=== PATIENT | male | born 1955 | race Caucasian/White ===

== ENCOUNTER 2022-12-02 13:12 | Inpatient (IN) | payer MEDICARE, MEDICAID, SELFPAY ==
[2022-12-02 13:58] VITALS: BP 110/58; PULSE 81; RESP 16; TEMP 36.4; O2SAT 100
[2022-12-02 13:59] VITALS: BMI 21.4
--- NOTE | 2022-12-02 16:48 | PC.ADMIT ---
Patient is 67 year old male admitted from [facility] ED from [facility] following engaging in self harm. Patient presents with numerous superficial lacerations on forearms bilaterally. These were inflicted with a razor blade which was then flushed down the toilet. Patient reports he was feeling depressed and frustrated d/t wanting to leave facitlity and get his own apartment. He stated through public health epidemiologist (Leatha Perales) he did not intend to commit suicide. Patient presents as alert and oriented x4. CV was obtained. Dressed in hospital attire. Well groomed. Making good eye contact and speaking primarily turkish. Patient has guardian in place as indicated in medical record. Refused to sign consents/treatment plan/belongings list stating his desire to see social media intern. Patient ambulatory with steady gait. PMH includes HtN, HYPERCHOLESTEREMIA, LOW BACK PAIN, CAD, HX OF CA, DRY EYES, 2 OPEN HEART SURGERIES.
[2022-12-02 18:00] VITALS: BP 129/69; PULSE 82; RESP 18; TEMP 36.1; O2SAT 98
[2022-12-02] MEDS: Acetaminophen 325 MG TABLET 650 MG PO (20:10)
[2022-12-02] MEDS: traZODone HCL 50 MG TABLET PO (20:12)
[2022-12-02] MEDS: hydrOXYzine HCL 25 MG TABLET PO (20:12)
[2022-12-03 07:30] VITALS: BP 134/81; PULSE 79; RESP 16; TEMP 35.9; O2SAT 96
[2022-12-03 08:15] LABS: Estimated Average Glucose 114 mg/dL; Hemoglobin A1c % 5.6 %
[2022-12-03 08:53] LABS: Alanine Aminotransferase 26 U/L (0-40); Albumin Level 4.3 g/dL (3.5-5.0); Alkaline Phosphatase 64 U/L (39-117); Aspartate Amino Transferase 25 U/L (5-37); Bilirubin Total 1.7 mg/dL (0.0-1.0); Blood Urea Nitrogen 20 mg/dL (9-16); Calcium 9.5 mg/dL (8.4-10.2); Cholesterol 155 mg/dL; Creatinine Clr Calc Pharmacy 56.3; Estimated Glomerular Filt Rate > 60; Glucose Fasting 92 mg/dL (60-99); HDL Cholesterol 45 mg/dL; LDL Cholesterol Calculated 87 mg/dl; Total Protein 7.2 g/dL (6.5-8.0); Triglycerides 119 mg/dL
[2022-12-03 09:18] LABS: Anion Gap 19 (12-20); Carbon Dioxide 23 mmol/L (22-29); Chloride 103 mmol/L (96-108); Folate 11.7 ng/mL (> or = 4.0); Potassium 4.4 mmol/L (3.3-5.1); Sodium 141 mmol/L (135-145); Thyroid Stimulating Hormone 1.57 uIU/mL (0.32-4.0); Vitamin B12 652 pg/mL (200-900)
--- NOTE | 2022-12-03 10:00 | HO.PSYADMNOT ---
HPI Date of Service: 12/02/22 Chief Complaint: Aggression Sources of Information: patient interviewed, chart reviewed and crisis/core team assessment reviewed HPI Subjective Notes: Dominguez Warning (given and shows understanding) and Conditional Voluntary Narrative: Mr. Kowalski is a 67 year-old male with Neurocognitive Disorder and MDD. Per records, pt was transported from [facility] after pt cut both forearms in an attempt to end his life. Per record, pt reported he didn't like the nursing facility as he stated I don't like the rules there, they treat me like a child. In the ED- his utox was negative. 11/30/22 labs cbc unremarkable, CMP wnl. On the unit, pt presents as pleasant. He reports he cut his forearms because he wants to get out of the nursing facility. Pt states he was sent last June to [facility] after he was discharged from hospital in [facility]. He reports he was told he gets lost and is confused, which pt states he disagrees. He states he does not need a guardian and he wants assistance with getting new debit card and finding a studio. He denies SI/HI. He reports only reason for self harm was with intent to leave that facility but not to end his life. He denies VH/AH, does not appear internally preoccupied. No delusions. Pt reports he has been on medication for depression, prozac, and finds it helpful. He reports he has sisters in [place] and that prior to coming to this state he was living in [place]. He reports he lost his apartment, for unclear reasons and he was sleeping/living on the streets. He reports at that time eating food from trash cans. He reports he tried to get assistance from social workers in [place] but states they didn't help him with getting a new debit/credit card to afford paying for an apartment. Past Psychiatric History: Inpatient: in the past but unclear location and years. OP: none Past trial: prozac Medical Evaluation Reviewed: Yes Diagnostics Vital Signs (24Hr): Vital Signs - 24 hr 12/02/22 13:58 12/02/22 18:00 12/03/22 07:30 Temperature 97.6 F 97 F 96.7 F L Pulse Rate 81 82 79 Respiratory Rate 16 18 16 Blood Pressure 110/58 L 129/69 134/81 Pulse Oximetry 100 98 96 Oxygen Delivery Method Room Air Room Air Room Air BMI result Body Mass Index 21.4 Labs 12/03/22 07:50 Labs: Laboratory Results - last 48 hr 12/03/22 12/03/22 12/03/22 07:50 07:50 11:05 Sodium 141 Potassium 4.4 Chloride 103 Carbon Dioxide 23 Anion Gap 19 BUN 20 H Creatinine 1.04 Estim Creat Clear Calc 56.3 Estimated GFR > 60 Fasting Glucose 92 Estimat Average Glucose 114 Hemoglobin A1c % 5.6 Calcium 9.5 Total Bilirubin 1.7 H AST 25 ALT 26 Alkaline Phosphatase 64 Total Protein 7.2 Albumin 4.3 Triglycerides 119 Cholesterol 155 LDL Cholesterol, Calc 87 HDL Cholesterol 45 Vitamin B12 652 Folate 11.7 TSH 1.57 COVID-19 (LEYDA) Negative COVID-19 Clin Com See Note Meds/Allergies Meds Home Medications Medication Instructions Recorded Confirmed Type acetaminophen 500 mg tablet 1,000 mg PO BID PRN Headache 12/02/22 12/02/22 History apixaban 5 mg tablet 5 mg PO BID 12/02/22 12/02/22 History atorvastatin 40 mg tablet 40 mg PO BEDTIME 12/02/22 12/02/22 History carboxymethylcellulose sodium 1 drp ophthalmic (eye) BID PRN Dry 12/02/22 12/02/22 History Eyes clopidogrel 75 mg tablet 75 mg PO DAILY PRN Chest Pain 12/02/22 12/02/22 History otzhdif-srhmdsmqhc-PNW-caffeine 30 1 cap PO Q4H PRN Headache 12/02/22 12/02/22 History mg-50 mg-325 mg-40 mg capsule diclofenac sodium 1 % topical gel PRN Back Pain 12/02/22 12/02/22 History (Arthritis Pain (diclofenac)) fluoxetine 40 mg capsule 40 mg PO DAILY 12/02/22 12/02/22 History lidocaine 5 % topical patch 1 patch topical DAILY 12/02/22 12/02/22 History (Lidoderm) lisinopril 5 mg tablet 5 mg PO DAILY 12/02/22 12/02/22 History melatonin 3 mg capsule 3 mg PO BEDTIME PRN Back Pain 12/02/22 12/02/22 History metoprolol succinate 25 mg 25 mg PO 1XD 12/02/22 12/02/22 History tablet,extended release 24 hr trazodone 50 mg tablet 50 mg PO BEDTIME 12/02/22 12/02/22 History Allergies Allergies Allergy/AdvReac Type Severity Reaction Status Date / Time No Known Allergies Allergy Verified 12/02/22 13:43 Mental Status Exam Mental Status Exam Narrative: Appearance: wearing hospital gown, good hygiene, in NAD Behavior: cooperative Psychomotor: no agitation or retardation noted Speech: clear, normal rate/rhythm, volume, spontaneous TP: tangential at times, but no loose associations TC:no signs of psychosis/delusions, wanting to get apartment and help from director social welfare. Mood: good Affect: bright, non labile, congruent SI: adamantly denies HI: denies VH/AH: none Delusions: none Memory/cog: alert, oriented to place, month, date. not formally tested suspect executive function impairment. pending MOCA. Assessment & Plan Assessment & Plan (1) MDD (major depressive disorder), recurrent episode, moderate: Status: Acute Code(s): F33.1 - Major depressive disorder, recurrent, moderate (2) Major neurocognitive disorder: Status: Acute Code(s): F03.90 - Unspecified dementia, unspecified severity, without behavioral disturbance, psychotic disturbance, mood disturbance, and anxiety Plan Mr. Kowalski is a 67 year-old male with hx of MDD, neurocognitive disorder who was transfered from [facility] to hospital after he cut both forearms superfically with razor reporting this was a suicide attempt. On the unit, pt reports he did not intent to end his life and that he was trying to get out of nursing facility. He adamantly denies SI/HI. He asks for help from to get new debit card and help him find him an apartment in this area. Pt appears with no insight into cognitive impairments and states he does not need a guardian. Copy of guardianship on chart- Angelo Zhu ([phone]) is guardian with power to sign pt into nursing facility. PLAN 1. admit to S1, cv, 15 minutes checks for safety 2. continue prozac for depression and trazodone for sleep. 3. Obtain collateral information 4. Aftercare planning. Patient educated on: diagnosis Reason for continued inpatient stay Substantial Risk for: harm to self Statement Statement: I have reviewed the history and physical and performed a pertinent examination on my patient. No changes have occurred unless specified. If the History and Physical was not performed prior to admission, the Hospitalist's service will be consulted for completing the admission physical. Time Spent With Patient Time: Total time managing care of this patient today ____ minutes.
[2022-12-03] MEDS: hydrOXYzine HCL 25 MG TABLET PO (10:19)
[2022-12-03] MEDS: Acetaminophen 325 MG TABLET 650 MG PO (10:19)
[2022-12-03 12:04] LABS: COVID-19 Test Negative (Negative); IDNOW Serial# BCCEAD1C
[2022-12-03] MEDS: FLUoxetine HCl 20 MG CAPSULE 40 MG PO (13:38)
[2022-12-03] MEDS: Apixaban 5 MG TABLET PO ×2 (13:38→19:37)
[2022-12-03] MEDS: Lidocaine 4 % Patch ADH..PATCH 1 PATCH TRANSDERMA (13:38)
[2022-12-03] MEDS: lisinopriL 5 MG TABLET PO (15:14)
[2022-12-03 18:00] VITALS: BP 119/67; PULSE 65; RESP 16; TEMP 36.6; O2SAT 96
[2022-12-03] MEDS: Atorvastatin Calcium 40 MG TABLET PO (19:37)
[2022-12-03] MEDS: traZODone HCL 50 MG TABLET PO (19:37)
[2022-12-04] MEDS: OLANZapine 10 MG VIAL IM ×2 (03:01→22:51)
[2022-12-04] MEDS: LORazepam 2 MG/ML VIAL 1 MG IM ×2 (03:03→22:52)
--- NOTE | 2022-12-04 03:37 | PC.NURSE ---
PT expressing SI statements and notified. PT placed on 1:1 at 2218 due to making SI statements, talking in Arabic to MHA on floor about wanting to hurt himself. PT was agitated that he had a roommate and staff needed to enter room to take care of roommate. While on 1:1 at 0214am PT went into BR which he shared with roommate and cut self superficially 2x on R arm and 1 time on L arm with toothpaste tube. MD Packer and nurse first line supervisor Gaby notified. Security called, PT refusing po meds so 10mg Zyprexa in R deltoid at 0245 and 1 mg ativan L deltoid given IM at 0250 with security present, no issues. VS taken after 15 minutes at 0300, BP 126/81, P 114, R 18, O2 98% at 0250 MD Keith notified to come see PT within 1 hour. PT refusing VS every 15 minutes after that. PT room changed to single room, all objects removed that could be used for self harm, room sweep done. PT remains on 1:1 and is resting at this time. Respirations are wnl. Incident report and restraint paperwork done.
--- NOTE | 2022-12-04 12:24 | P.PNPSI_ITS ---
Subjective Subjective Date of Service: 12/04/22 Reason For Visit: Aggression Subjective Notes: Conditional Voluntary Interim History: The nursing staff reported that last night the patient needed to be chemically restrained and he was on one-to-one, he tried to cut his forearm with a toothpaste package and he stated that he will kill herself regardless of the rahat sures that we take. On interview I tried to ask what happened but he refursed to elaborate, he sta low that he was OK. Mental Status Exam Mental Status Exam Patient Orientation: Person, Place and Situation Level of Consciousness: Awake and Inappropriate Patient Behavior: Guarded and Suspicious Mood Description: Withdrawn Affect Description: Constricted Patient Cognition Impaired: Yes Ability to Follow Directions: Fair Speech Pattern: Monotone Hallucinations: None Delusions: Paranoid Ideation Thought Process: Distracted and Slowed Thinking Thought Content: positive for [place] Judgement: Poor Diagnostics Vital Signs (24Hr): Vital Signs - 24 hr 12/03/22 18:00 Temperature 97.9 F Pulse Rate 65 Respiratory Rate 16 Blood Pressure 119/67 Pulse Oximetry 96 Oxygen Delivery Method Room Air BMI result Body Mass Index 21.4 Labs 12/03/22 07:50 Labs: Laboratory Results - last 48 hr 12/03/22 12/03/22 12/03/22 07:50 07:50 11:05 Sodium 141 Potassium 4.4 Chloride 103 Carbon Dioxide 23 Anion Gap 19 BUN 20 H Creatinine 1.04 Estim Creat Clear Calc 56.3 Estimated GFR > 60 Fasting Glucose 92 Estimat Average Glucose 114 Hemoglobin A1c % 5.6 Calcium 9.5 Total Bilirubin 1.7 H AST 25 ALT 26 Alkaline Phosphatase 64 Total Protein 7.2 Albumin 4.3 Triglycerides 119 Cholesterol 155 LDL Cholesterol, Calc 87 HDL Cholesterol 45 Vitamin B12 652 Folate 11.7 TSH 1.57 COVID-19 (LEYDA) Negative COVID-19 Clin Com See Note Medications Medications Current Medications Acetaminophen (Acetaminophen 325 Mg Tablet) 650 mg PO Q6H PRN PRN Reason: Headache/Pain Mild Scale (1-3) Last Admin: 12/03/22 10:19 Dose: 650 mg Al Hydroxide/Mg Hydroxide (Magnesium Hydrox/Alum Hydrox 30 Ml Oral.Susp) 30 ml PO Q6H PRN PRN Reason: Heartburn/Nausea Apixaban (Apixaban 5 Mg Tablet) 5 mg PO BID AKSHAT Last Admin: 12/04/22 11:50 Dose: Not Given Artificial Tears (Artificial Tears 15 Ml Drops) 1 drop EYE-BOTH BID PRN PRN Reason: Dry Eyes Atorvastatin Calcium (Atorvastatin Calcium 40 Mg Tablet) 40 mg PO BEDTIME [facility] Last Admin: 12/03/22 19:37 Dose: 40 mg Clopidogrel Bisulfate (Clopidogrel Bisulfate 75 Mg Tablet) 75 mg PO DAILY PRN PRN Reason: Chest Pain Fluoxetine HCl (Fluoxetine Hcl 20 Mg Capsule) 40 mg PO DAILY [facility] Last Admin: 12/04/22 11:51 Dose: Not Given Hydroxyzine HCl (Hydroxyzine Hcl 25 Mg Tablet) 25 mg PO Q6H PRN PRN Reason: Anxiety Last Admin: 12/03/22 10:19 Dose: 25 mg Lidocaine (Lidocaine 4 % Patch Adh..Patch) 1 patch TRANSDERMA DAILY [facility] Last Admin: 12/04/22 11:51 Dose: Not Given Lisinopril (Lisinopril 5 Mg Tablet) 5 mg PO DAILY [facility]; Protocol Last Admin: 12/04/22 11:51 Dose: Not Given Magnesium Hydroxide (Milk Of Magnesia 30 Ml Oral.Susp) 30 ml PO DAILY PRN PRN Reason: Constipation Melatonin (Melatonin 3 Mg Tablet) 3 mg PO BEDTIME PRN PRN Reason: Back Pain Metoprolol Succinate (Metoprolol Succinate Er 25 Mg Tab.Er.24h) 25 mg PO DAILY [facility]; Protocol Last Admin: 12/04/22 11:51 Dose: Not Given Non-Formulary Medication (Ozyglcv-Bakbogeltc-Lbk-Caff) 1 cap PO Q4H PRN PRN Reason: Headache Olanzapine (Olanzapine 2.5 Mg Tablet) 2.5 mg PO BID PRN PRN Reason: agitation, activation of SIBS Trazodone HCl (Trazodone Hcl 50 Mg Tablet) 50 mg PO BEDTIME PRN PRN Reason: Insomnia Last Admin: 12/02/22 20:12 Dose: 50 mg Trazodone HCl (Trazodone Hcl 50 Mg Tablet) 50 mg PO BEDTIME [facility] Last Admin: 12/03/22 19:37 Dose: 50 mg Allergies Allergies Allergy/AdvReac Type Severity Reaction Status Date / Time No Known Allergies Allergy Verified 12/02/22 13:43 Assessment & Plan Assessment & Plan (1) MDD (major depressive disorder), recurrent episode, moderate: Status: Acute Code(s): F33.1 - Major depressive disorder, recurrent, moderate (2) Major neurocognitive disorder: Status: Acute Code(s): F03.90 - Unspecified dementia, unspecified severity, without behavioral disturbance, psychotic disturbance, mood disturbance, and anxiety Plan Mr. Kowalski is a 67 year-old male with hx of MDD, neurocognitive disorder who was transfered from [facility] to hospital after he cut both forearms superfically with razor reporting this was a suicide attempt. On the unit, pt reports he did not intent to end his life and that he was trying to get out of nursing facility. He adamantly denies SI/HI. He asks for help from SW to get new debit card and help him find him an apartment in this area. Pt appears with no insight into cognitive impairments and states he does not need a guardian. Copy of guardianship on chart- Angelo Wisdomer ([phone]) is guardian with power to sign pt into nursing facility. PLAN 1. admit to S1, cv, 15 minutes checks for safety 2. continue prozac for depression and trazodone for sleep. 3. Obtain collateral information 4. Aftercare planning. 5. Continue one-to-one for safety Reason for contiued inpatient stay Substantial Risk for: inability to function, rapid decompensation and med/psych decompensation Time Spent With Patient Time: Total time managing care of this patient today __20__ minutes.
[2022-12-04] MEDS: hydrOXYzine HCL 25 MG TABLET PO (19:38)
[2022-12-04] MEDS: Atorvastatin Calcium 40 MG TABLET PO (19:38)
[2022-12-04] MEDS: Apixaban 5 MG TABLET PO (19:38)
[2022-12-04] MEDS: traZODone HCL 50 MG TABLET PO (19:38)
--- NOTE | 2022-12-04 22:35 | PM.EVENT ---
Event Note Date of Service: 12/04/22 Event Note: pt agitated, throwing things, spitting, threatening staff, unable to be redirected and will not take prn. Discussed with nursing and previously pt treated with IM zyprexa 10mg /ativan 1mg, so reordered the same Time Spent With Patient Time: Total time managing care of this patient today ____ minutes.
--- NOTE | 2022-12-05 04:06 | PC.NURSE ---
12/04/2022 7 PM Patient took shower and became angry when he was not allowed to keep a comb due to self harm. Patient disrupting floor with yelling swears at other patients and staff. Security called to help calm patient and he agreed to take his hs meds. Patient has a one to one staff and patient continued to yell and swear in [facility], slamming bathroom door, throwing liquid, spitting on floors. Patient offered PRN Trazadone and zyprexa and he threw the pills across the room states give me a shot I am not taking your pills . Patient continued to be disruptive and aggressive threatening to slice our throats. Dr. Bowman called and orders given. 2250 Patient given Zyprexa 10 mg and Ativan 1 mg IM with good effect. Patient refuses vital signs post IM meds given. Hospitalist in to see patient. Patient has constant one to one staff. Patient sleeping at this time without incident.
[2022-12-05] MEDS: OLANZapine 10 MG VIAL IM (12:26)
[2022-12-05] MEDS: LORazepam 2 MG/ML VIAL 1 MG IM (12:38)
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
[2022-12-05 18:00] VITALS: BP 129/62; PULSE 88; RESP 18; TEMP 36.2; O2SAT 95
[2022-12-05] MEDS: Atorvastatin Calcium 40 MG TABLET PO (19:55)
[2022-12-05] MEDS: traZODone HCL 50 MG TABLET PO (19:55)
[2022-12-05] MEDS: Apixaban 5 MG TABLET PO (19:55)
[2022-12-05] MEDS: Melatonin 3 MG TABLET PO (19:56)
[2022-12-06 06:00] VITALS: BP 125/83; PULSE 119; RESP 18; TEMP 36.4; O2SAT 95
--- NOTE | 2022-12-06 06:48 | PC.NURSE ---
Patient is awake at 0600 enjoying conversation with his ethiopian speaking 1:1 states I am not usually mean to people, just sometimes I get angry . Patient shook my hand told me my name is ethiopian and is cooperative.
[2022-12-06] MEDS: Lidocaine 4 % Patch ADH..PATCH 1 PATCH TRANSDERMA (08:18)
[2022-12-06] MEDS: Metoprolol Succinate ER 25 MG TAB.ER.24H PO (08:19)
[2022-12-06] MEDS: lisinopriL 5 MG TABLET PO (08:19)
[2022-12-06] MEDS: FLUoxetine HCl 20 MG CAPSULE 40 MG PO (08:19)
[2022-12-06] MEDS: Apixaban 5 MG TABLET PO ×2 (08:19→20:16)
[2022-12-06] MEDS: hydrOXYzine HCL 25 MG TABLET PO ×2 (10:29→20:16)
[2022-12-06] MEDS: Acetaminophen 325 MG TABLET 650 MG PO ×2 (11:49→20:20)
--- NOTE | 2022-12-06 12:23 | HO.PSYCHPN ---
Subjective Subjective Date of Service: 12/06/22 Reason For Visit: Aggression Interim History: pt much calmer today; cooperative; bright; expressing remorse for outbursts and aggression yesterday. appropriate with peers and staff. reports vistaril helped with anxiety Medication Compliance: Yes Side effects from medications: No Attending Groups: No Review of Systems Acute medical concerns: No Medical Review of Systems: unchanged Review of Systems Review of Systems no changes Mental Status Exam Mental Status Exam Narrative: Appearance: neatly dressed, good hygiene, in NAD Behavior:cooperative Psychomotor:calm Speech:appropriate, coherent,normal volume, spontaneous TP: tangential at times, but no loose associations TC: remorseful; cooperative Mood:euthymic Affect: labile, congruent SI: adamantly denies HI: denies VH/AH: none Delusions: none Memory/cog: alert, oriented to place, month, date. not formally tested suspect executive function impairment. pending MOCA. Patient Appearance: Appropriate Patient Orientation: Person, Place and Situation Level of Consciousness: Awake and Inappropriate Patient Behavior: Guarded, Suspicious, Aggressive, Verbal Threats, Swearing, Invasion - Personal Space, Uncooperative, Impulsive and Pacing Mood Description: Angry Affect Description: Labile Patient Cognition Impaired: Yes Ability to Follow Directions: Poor Speech Pattern: Coherent, Inappropriate and Includes Profanity Diagnostics Vital Signs (24Hr): Vital Signs - 24 hr 12/05/22 18:00 12/06/22 06:00 Temperature 97.1 F 97.5 F Pulse Rate 88 119 H Respiratory Rate 18 18 Blood Pressure 129/62 125/83 Pulse Oximetry 95 95 Oxygen Delivery Method Room Air Room Air BMI result Body Mass Index 21.4 Labs 12/03/22 07:50 Medications Medications Current Medications Acetaminophen (Acetaminophen 325 Mg Tablet) 650 mg PO Q6H PRN PRN Reason: Headache/Pain Mild Scale (1-3) Last Admin: 12/06/22 11:49 Dose: 650 mg Al Hydroxide/Mg Hydroxide (Magnesium Hydrox/Alum Hydrox 30 Ml Oral.Susp) 30 ml PO Q6H PRN PRN Reason: Heartburn/Nausea Apixaban (Apixaban 5 Mg Tablet) 5 mg PO BID [facility] Last Admin: 12/06/22 08:19 Dose: 5 mg Artificial Tears (Artificial Tears 15 Ml Drops) 1 drop EYE-BOTH BID PRN PRN Reason: Dry Eyes Atorvastatin Calcium (Atorvastatin Calcium 40 Mg Tablet) 40 mg PO BEDTIME [facility] Last Admin: 12/05/22 19:55 Dose: 40 mg Clopidogrel Bisulfate (Clopidogrel Bisulfate 75 Mg Tablet) 75 mg PO DAILY PRN PRN Reason: Chest Pain Fluoxetine HCl (Fluoxetine Hcl 20 Mg Capsule) 40 mg PO DAILY [facility] Last Admin: 12/06/22 08:19 Dose: 40 mg Hydroxyzine HCl (Hydroxyzine Hcl 25 Mg Tablet) 25 mg PO Q6H PRN PRN Reason: Anxiety Last Admin: 12/06/22 10:29 Dose: 25 mg Lidocaine (Lidocaine 4 % Patch Adh..Patch) 1 patch TRANSDERMA DAILY [facility] Last Admin: 12/06/22 08:18 Dose: 1 patch Lisinopril (Lisinopril 5 Mg Tablet) 5 mg PO DAILY [facility]; Protocol Last Admin: 12/06/22 08:19 Dose: 5 mg Magnesium Hydroxide (Milk Of Magnesia 30 Ml Oral.Susp) 30 ml PO DAILY PRN PRN Reason: Constipation Melatonin (Melatonin 3 Mg Tablet) 3 mg PO BEDTIME PRN PRN Reason: Back Pain Last Admin: 12/05/22 19:56 Dose: 3 mg Metoprolol Succinate (Metoprolol Succinate Er 25 Mg Tab.Er.24h) 25 mg PO DAILY [facility]; Protocol Last Admin: 12/06/22 08:19 Dose: 25 mg Non-Formulary Medication (Stdxhxe-Sjtkgylrrk-Rma-Caff) 1 cap PO Q4H PRN PRN Reason: Headache Olanzapine (Olanzapine 2.5 Mg Tablet) 2.5 mg PO BID PRN PRN Reason: agitation, activation of SIBS Trazodone HCl (Trazodone Hcl 50 Mg Tablet) 50 mg PO BEDTIME PRN PRN Reason: Insomnia Last Admin: 12/02/22 20:12 Dose: 50 mg Trazodone HCl (Trazodone Hcl 50 Mg Tablet) 50 mg PO BEDTIME [facility] Last Admin: 12/05/22 19:55 Dose: 50 mg Allergies Allergies Allergy/AdvReac Type Severity Reaction Status Date / Time No Known Allergies Allergy Verified 12/02/22 13:43 Assessment & Plan Assessment & Plan (1) MDD (major depressive disorder), recurrent episode, moderate: Status: Acute Code(s): F33.1 - Major depressive disorder, recurrent, moderate (2) Major neurocognitive disorder: Status: Acute Code(s): F03.90 - Unspecified dementia, unspecified severity, without behavioral disturbance, psychotic disturbance, mood disturbance, and anxiety Plan Mr. Kowalski is a 67 year-old male with hx of MDD, neurocognitive disorder who was transfered from [facility] to hospital after he cut both forearms superfically with razor reporting this was a suicide attempt. On the unit, pt reports he did not intent to end his life and that he was trying to get out of nursing facility. He adamantly denies SI/HI. He asks for help from SW to get new debit card and help him find him an apartment in this area. Pt appears with no insight into cognitive impairments and states he does not need a guardian. Copy of guardianship on chart- Angelo Zhu ([phone]) is guardian with power to sign pt into nursing facility. PLAN CV continue prozac for depression and trazodone for sleep. encourage vistaril for anxiety Obtain collateral information Aftercare planning. Continue one-to-one for safety Patient educated on: medication risk/benefits and therapeutic strategies Informed Consent: further education needed Reason for contiued inpatient stay Substantial Risk for: harm to self, harm to others, rapid decompensation and med/psych decompensation Time Spent With Patient Time: Total time managing care of this patient today ____ minutes.
[2022-12-06 18:00] VITALS: BP 132/92; PULSE 80; RESP 16; TEMP 36.1; O2SAT 95
[2022-12-06] MEDS: traZODone HCL 50 MG TABLET PO (20:15)
[2022-12-06] MEDS: Atorvastatin Calcium 40 MG TABLET PO (20:16)
[2022-12-06] MEDS: Melatonin 3 MG TABLET PO (20:20)
[2022-12-07] MEDS: Acetaminophen 325 MG TABLET 650 MG PO (06:35)
[2022-12-07] MEDS: lisinopriL 5 MG TABLET PO (09:27)
[2022-12-07] MEDS: Apixaban 5 MG TABLET PO (09:27)
[2022-12-07] MEDS: Lidocaine 4 % Patch ADH..PATCH 1 PATCH TRANSDERMA (09:28)
[2022-12-07] MEDS: Metoprolol Succinate ER 25 MG TAB.ER.24H PO (09:28)
[2022-12-07 10:34] VITALS: BP 150/75; PULSE 76; RESP 18; O2SAT 96
--- NOTE | 2022-12-07 13:07 | HO.PSYCHPN ---
Subjective Subjective Date of Service: 12/07/22 Reason For Visit: Aggression Subjective Notes: Conditional Voluntary Interim History: The nursing staff reported the patient has been very rude with staff and today in the morning he threw away his oatmeal on the floor. On Wednesday he threw out all hot soup to a peer that was very angry and he needed to be medicated IM. The occupational therapist reported that here [place] test was 3.4 and they could not do a [place] test. On interview the patient reported that he wanted to kill someone he was just angry, unable to follow the interview. We discussed with the team and we agreed to start Depakote to control mood lability. Also, since the patient had been chemically restrain will start with an antipsychotic. Mental Status Exam Mental Status Exam Patient Appearance: Appropriate Patient Orientation: Person and Situation Level of Consciousness: Awake and Appropriate Patient Behavior: Guarded, Passive and Suspicious Mood Description: Withdrawn and Angry Affect Description: Labile Patient Cognition Impaired: Yes Ability to Follow Directions: Good Speech Pattern: Clear Hallucinations: None Delusions: Not Present Thought Process: Distracted and Evasive Thought Content: positive for [place] and positive for [place] Oriented Judgement: Fair Diagnostics Vital Signs (24Hr): Vital Signs - 24 hr 12/06/22 18:00 12/07/22 10:34 Temperature 96.9 F Pulse Rate 80 76 Respiratory Rate 16 18 Blood Pressure 132/92 H 150/75 H Pulse Oximetry 95 96 Oxygen Delivery Method Room Air Room Air BMI result Body Mass Index 21.4 Labs 12/03/22 07:50 Medications Medications Current Medications Acetaminophen (Acetaminophen 325 Mg Tablet) 650 mg PO Q6H PRN PRN Reason: Headache/Pain Mild Scale (1-3) Last Admin: 12/07/22 06:35 Dose: 650 mg Al Hydroxide/Mg Hydroxide (Magnesium Hydrox/Alum Hydrox 30 Ml Oral.Susp) 30 ml PO Q6H PRN PRN Reason: Heartburn/Nausea Apixaban (Apixaban 5 Mg Tablet) 5 mg PO BID [facility] Last Admin: 12/07/22 09:27 Dose: 5 mg Artificial Tears (Artificial Tears 15 Ml Drops) 1 drop EYE-BOTH BID PRN PRN Reason: Dry Eyes Atorvastatin Calcium (Atorvastatin Calcium 40 Mg Tablet) 40 mg PO BEDTIME [facility] Last Admin: 12/06/22 20:16 Dose: 40 mg Clopidogrel Bisulfate (Clopidogrel Bisulfate 75 Mg Tablet) 75 mg PO DAILY PRN PRN Reason: Chest Pain Divalproex Sodium (Divalproex Sodium 250 Mg Tablet.Dr) 250 mg PO TID [facility] Last Admin: 12/07/22 09:32 Dose: Not Given Fluoxetine HCl (Fluoxetine Hcl 20 Mg Capsule) 40 mg PO DAILY [facility] Last Admin: 12/07/22 09:32 Dose: Not Given Hydroxyzine HCl (Hydroxyzine Hcl 25 Mg Tablet) 25 mg PO Q6H PRN PRN Reason: Anxiety Last Admin: 12/06/22 20:16 Dose: 25 mg Lidocaine (Lidocaine 4 % Patch Adh..Patch) 1 patch TRANSDERMA DAILY [facility] Last Admin: 12/07/22 09:28 Dose: 1 patch Lisinopril (Lisinopril 5 Mg Tablet) 5 mg PO DAILY [facility]; Protocol Last Admin: 12/07/22 09:27 Dose: 5 mg Magnesium Hydroxide (Milk Of Magnesia 30 Ml Oral.Susp) 30 ml PO DAILY PRN PRN Reason: Constipation Melatonin (Melatonin 3 Mg Tablet) 3 mg PO BEDTIME PRN PRN Reason: Back Pain Last Admin: 12/06/22 20:20 Dose: 3 mg Metoprolol Succinate (Metoprolol Succinate Er 25 Mg Tab.Er.24h) 25 mg PO DAILY [facility]; Protocol Last Admin: 12/07/22 09:28 Dose: 25 mg Non-Formulary Medication (Pmbggtu-Xlzpwbycnn-Eno-Caff) 1 cap PO Q4H PRN PRN Reason: Headache Olanzapine (Olanzapine 2.5 Mg Tablet) 2.5 mg PO BID PRN PRN Reason: agitation, activation of SIBS Trazodone HCl (Trazodone Hcl 50 Mg Tablet) 50 mg PO BEDTIME PRN PRN Reason: Insomnia Last Admin: 12/02/22 20:12 Dose: 50 mg Trazodone HCl (Trazodone Hcl 50 Mg Tablet) 50 mg PO BEDTIME [facility] Last Admin: 12/06/22 20:15 Dose: 50 mg Allergies Allergies Allergy/AdvReac Type Severity Reaction Status Date / Time No Known Allergies Allergy Verified 12/02/22 13:43 Assessment & Plan Assessment & Plan (1) MDD (major depressive disorder), recurrent episode, moderate: Status: Acute Code(s): F33.1 - Major depressive disorder, recurrent, moderate (2) Major neurocognitive disorder: Status: Acute Code(s): F03.90 - Unspecified dementia, unspecified severity, without behavioral disturbance, psychotic disturbance, mood disturbance, and anxiety Plan Mr. Kowalski is a 67 year-old male with hx of MDD, neurocognitive disorder who was transfered from [facility] [place] [place] to hospital after he cut both forearms superfically with razor reporting this was a suicide attempt. On the unit, pt reports he did not intent to end his life and that he was trying to get out of nursing facility. He adamantly denies SI/HI. He asks for help from to get new debit card and help him find him an apartment in this area. Pt appears with no insight into cognitive impairments and states he does not need a guardian. Copy of guardianship on chart- Angelo Zhu ([phone]) is guardian with power to sign pt into nursing facility. PLAN CV continue prozac for depression and trazodone for sleep. encourage vistaril for anxiety Obtain collateral information Aftercare planning. Continue one-to-one for safety On December 07 start Depakote 250 mg p.o. t.i.d. to target mood lability. On December 07 start Zyprexa 2.5 p.o. b.i.d. Informed Consent: does not understand Reason for contiued inpatient stay Substantial Risk for: inability to function, rapid decompensation and med/psych decompensation Time Spent With Patient Time: Total time managing care of this patient today __20__ minutes.
[2022-12-07] MEDS: hydrOXYzine HCL 25 MG TABLET PO ×2 (17:33→21:16)
[2022-12-07] MEDS: OLANZapine 2.5 MG TABLET PO ×2 (17:33→21:17)
--- NOTE | 2022-12-07 17:39 | PC.NURSE ---
Pt walked out of room, multiple superficial scratches on bilat arms. Agitated and somewhat aggressive with ? verbal assaults in [place]. Interpreters telling this nurse pt speaking non sensical at times. Pt states will do something worse if I don't get out of here Security present and pt agreed to take medications po. returned to room with 1:1.
[2022-12-07 18:00] VITALS: BP 110/65; PULSE 60; RESP 16; TEMP 36.6; O2SAT 94
[2022-12-07] MEDS: Divalproex Sodium 250 MG TABLET.DR PO (21:16)
[2022-12-07] MEDS: Atorvastatin Calcium 40 MG TABLET PO (21:16)
[2022-12-07] MEDS: traZODone HCL 50 MG TABLET PO (21:18)
[2022-12-08] MEDS: Apixaban 5 MG TABLET PO ×3 (01:18→20:44)
[2022-12-08 07:30] VITALS: BP 131/61; PULSE 76; RESP 16; TEMP 36.8; O2SAT 94
[2022-12-08] MEDS: Lidocaine 4 % Patch ADH..PATCH 1 PATCH TRANSDERMA (09:45)
[2022-12-08] MEDS: OLANZapine 5 MG TABLET PO ×2 (09:47→20:44)
[2022-12-08] MEDS: FLUoxetine HCl 20 MG CAPSULE PO (09:47)
[2022-12-08] MEDS: lisinopriL 5 MG TABLET PO (09:47)
[2022-12-08] MEDS: Metoprolol Succinate ER 25 MG TAB.ER.24H PO (09:47)
[2022-12-08] MEDS: Divalproex Sodium 250 MG TABLET.DR PO ×3 (09:49→20:44)
[2022-12-08] MEDS: hydrOXYzine HCL 25 MG TABLET PO (09:51)
--- NOTE | 2022-12-08 11:40 | HO.PSYCHPN ---
Subjective Subjective Date of Service: 12/08/22 Reason For Visit: Aggression Subjective Notes: Conditional Voluntary Interim History: The nursing staff reported the patient remains on one-to-one due to safety. Last night he was very angry against female staff regarding that he cannot brush his teeth without supervision since he self harms. Security have to come and deescalated was closed for a chemical restraint. So far he had for chemical restraints. Yesterday we will lower the Prozac to 20 mg daily since he was very irritable, we started on Zyprexa 2.5 p.o. b.i.d. but he has not been over-sedated. Yesterday he used p.r.n. Zyprexa and Atarax twice. He had been poorly compliant with Depakote. On interview today he was very angry, verbalizing anger and homicidal ideation against a peer. We will increase his Zyprexa up to 5 mg p.o. b.i.d. since he is not over-sedated with 2.5 He has reqeusted more Vistaril Mental Status Exam Mental Status Exam Patient Appearance: Appropriate Patient Orientation: Person and Situation Level of Consciousness: Awake and Appropriate Patient Behavior: Passive and Belligerent Mood Description: Withdrawn Affect Description: Constricted Patient Cognition Impaired: Yes Ability to Follow Directions: Good Speech Pattern: Clear Hallucinations: None Delusions: Paranoid Ideation Thought Process: Distracted and Slowed Thinking Thought Content: positive for [place] and positive for Poverty of Content Judgement: Poor Diagnostics Vital Signs (24Hr): Vital Signs - 24 hr 12/07/22 18:00 12/08/22 07:30 Temperature 97.8 F 98.2 F Pulse Rate 60 76 Respiratory Rate 16 16 Blood Pressure 110/65 131/61 Pulse Oximetry 94 94 Oxygen Delivery Method Room Air Room Air BMI result Body Mass Index 21.4 Labs 12/03/22 07:50 Medications Medications Current Medications Acetaminophen (Acetaminophen 325 Mg Tablet) 650 mg PO Q6H PRN PRN Reason: Headache/Pain Mild Scale (1-3) Last Admin: 12/07/22 06:35 Dose: 650 mg Al Hydroxide/Mg Hydroxide (Magnesium Hydrox/Alum Hydrox 30 Ml Oral.Susp) 30 ml PO Q6H PRN PRN Reason: Heartburn/Nausea Apixaban (Apixaban 5 Mg Tablet) 5 mg PO BID [facility] Last Admin: 12/08/22 09:47 Dose: 5 mg Artificial Tears (Artificial Tears 15 Ml Drops) 1 drop EYE-BOTH BID PRN PRN Reason: Dry Eyes Atorvastatin Calcium (Atorvastatin Calcium 40 Mg Tablet) 40 mg PO BEDTIME [facility] Last Admin: 12/07/22 21:16 Dose: 40 mg Clopidogrel Bisulfate (Clopidogrel Bisulfate 75 Mg Tablet) 75 mg PO DAILY PRN PRN Reason: Chest Pain Divalproex Sodium (Divalproex Sodium 250 Mg Tablet.Dr) 250 mg PO TID [facility] Last Admin: 12/08/22 09:49 Dose: 250 mg Fluoxetine HCl (Fluoxetine Hcl 20 Mg Capsule) 20 mg PO DAILY [facility] Last Admin: 12/08/22 09:47 Dose: 20 mg Hydroxyzine HCl (Hydroxyzine Hcl 25 Mg Tablet) 25 mg PO Q6H PRN PRN Reason: Anxiety Last Admin: 12/08/22 09:51 Dose: 25 mg Lidocaine (Lidocaine 4 % Patch Adh..Patch) 1 patch TRANSDERMA DAILY [facility] Last Admin: 12/08/22 09:45 Dose: 1 patch Lisinopril (Lisinopril 5 Mg Tablet) 5 mg PO DAILY [facility]; Protocol Last Admin: 12/08/22 09:47 Dose: 5 mg Magnesium Hydroxide (Milk Of Magnesia 30 Ml Oral.Susp) 30 ml PO DAILY PRN PRN Reason: Constipation Melatonin (Melatonin 3 Mg Tablet) 3 mg PO BEDTIME PRN PRN Reason: Back Pain Last Admin: 12/06/22 20:20 Dose: 3 mg Metoprolol Succinate (Metoprolol Succinate Er 25 Mg Tab.Er.24h) 25 mg PO DAILY [facility]; Protocol Last Admin: 12/08/22 09:47 Dose: 25 mg Non-Formulary Medication (Nefcijc-Gphenqunif-Umj-Caff) 1 cap PO Q4H PRN PRN Reason: Headache Olanzapine (Olanzapine 2.5 Mg Tablet) 2.5 mg PO BID PRN PRN Reason: agitation, activation of SIBS Last Admin: 12/07/22 17:33 Dose: 2.5 mg Olanzapine (Olanzapine 5 Mg Tablet) 5 mg PO BID [facility] Last Admin: 12/08/22 09:47 Dose: 5 mg Trazodone HCl (Trazodone Hcl 50 Mg Tablet) 50 mg PO BEDTIME PRN PRN Reason: Insomnia Last Admin: 12/02/22 20:12 Dose: 50 mg Trazodone HCl (Trazodone Hcl 50 Mg Tablet) 50 mg PO BEDTIME [facility] Last Admin: 12/07/22 21:18 Dose: 50 mg Allergies Allergies Allergy/AdvReac Type Severity Reaction Status Date / Time No Known Allergies Allergy Verified 12/02/22 13:43 Assessment & Plan Assessment & Plan (1) MDD (major depressive disorder), recurrent episode, moderate: Status: Acute Code(s): F33.1 - Major depressive disorder, recurrent, moderate (2) Major neurocognitive disorder: Status: Acute Code(s): F03.90 - Unspecified dementia, unspecified severity, without behavioral disturbance, psychotic disturbance, mood disturbance, and anxiety Plan Mr. Kowalski is a 67 year-old male with hx of MDD, neurocognitive disorder who was transfered from [facility] to hospital after he cut both forearms superfically with razor reporting this was a suicide attempt. On the unit, pt reports he did not intent to end his life and that he was trying to get out of nursing facility. He adamantly denies SI/HI. He asks for help from to get new debit card and help him find him an apartment in this area. Pt appears with no insight into cognitive impairments and states he does not need a guardian. Copy of guardianship on chart- Angelo Zhu ([phone]) is guardian with power to sign pt into nursing facility. PLAN CV continue prozac for depression and trazodone for sleep. encourage vistaril for anxiety Obtain collateral information Aftercare planning. Continue one-to-one for safety On December 07 start Depakote 250 mg p.o. t.i.d. to target mood lability. On December 07 start Zyprexa 2.5 p.o. b.i.d. the next day we increased apraxia up to 5 mg p.o. b.i.d. since he was not over-sedated with 2.5 Reason for contiued inpatient stay Substantial Risk for: inability to function, rapid decompensation and med/psych decompensation Time Spent With Patient Time: Total time managing care of this patient today __20__ minutes.
[2022-12-08] MEDS: OLANZapine 2.5 MG TABLET PO (13:20)
[2022-12-08] MEDS: Acetaminophen 325 MG TABLET 650 MG PO ×2 (13:24→20:49)
[2022-12-08] MEDS: hydrOXYzine HCL 25 MG TABLET 50 MG PO (15:57)
[2022-12-08] MEDS: traZODone HCL 50 MG TABLET PO (20:44)
[2022-12-08] MEDS: Atorvastatin Calcium 40 MG TABLET PO (20:44)
[2022-12-09 07:30] VITALS: BP 134/60; PULSE 74; RESP 19; TEMP 36.4; O2SAT 98
[2022-12-09] MEDS: Lidocaine 4 % Patch ADH..PATCH 1 PATCH TRANSDERMA ×2 (08:10→11:58)
[2022-12-09] MEDS: FLUoxetine HCl 20 MG CAPSULE PO (08:13)
[2022-12-09] MEDS: Metoprolol Succinate ER 25 MG TAB.ER.24H PO (08:13)
[2022-12-09] MEDS: OLANZapine 5 MG TABLET PO ×2 (08:13→20:11)
[2022-12-09] MEDS: Apixaban 5 MG TABLET PO ×2 (08:13→20:17)
[2022-12-09] MEDS: lisinopriL 5 MG TABLET PO (08:13)
[2022-12-09] MEDS: Divalproex Sodium 250 MG TABLET.DR PO ×3 (08:13→20:17)
[2022-12-09] MEDS: Acetaminophen 325 MG TABLET 650 MG PO ×2 (08:16→20:21)
[2022-12-09] MEDS: hydrOXYzine HCL 25 MG TABLET 50 MG PO (11:24)
--- NOTE | 2022-12-09 12:43 | HO.PSYCHPN ---
Subjective Subjective Date of Service: 12/09/22 Reason For Visit: Aggression Subjective Notes: Conditional Voluntary Interim History: The nursing staff reported that today in the morning he was calm and pleasant, he was less hyperverbal and medication compliant. He slept well last night and there was no aggression. The social sciences lecturer reported that it several times to reach his guardian but and no response. On interview the patient was minimally interactive denies new symptoms. No over-sedation Mental Status Exam Mental Status Exam Patient Appearance: Appropriate Patient Orientation: Person and Situation Level of Consciousness: Awake and Appropriate Patient Behavior: Guarded and Passive Mood Description: Withdrawn Affect Description: Constricted and Labile Patient Cognition Impaired: Yes Ability to Follow Directions: Good Speech Pattern: Clear Hallucinations: None Delusions: Ideas of Reference Thought Process: Distracted and Slowed Thinking Thought Content: positive for [place] and positive for Poverty of Content Judgement: Poor Diagnostics Vital Signs (24Hr): Vital Signs - 24 hr 12/09/22 07:30 Temperature 97.6 F Pulse Rate 74 Respiratory Rate 19 Blood Pressure 134/60 Pulse Oximetry 98 Oxygen Delivery Method Room Air BMI result Body Mass Index 21.4 Labs 12/03/22 07:50 Medications Medications Current Medications Acetaminophen (Acetaminophen 325 Mg Tablet) 650 mg PO Q6H PRN PRN Reason: Headache/Pain Mild Scale (1-3) Last Admin: 12/09/22 08:16 Dose: 650 mg Al Hydroxide/Mg Hydroxide (Magnesium Hydrox/Alum Hydrox 30 Ml Oral.Susp) 30 ml PO Q6H PRN PRN Reason: Heartburn/Nausea Apixaban (Apixaban 5 Mg Tablet) 5 mg PO BID [facility] Last Admin: 12/09/22 08:13 Dose: 5 mg Artificial Tears (Artificial Tears 15 Ml Drops) 1 drop EYE-BOTH BID PRN PRN Reason: Dry Eyes Atorvastatin Calcium (Atorvastatin Calcium 40 Mg Tablet) 40 mg PO BEDTIME [facility] Last Admin: 12/08/22 20:44 Dose: 40 mg Clopidogrel Bisulfate (Clopidogrel Bisulfate 75 Mg Tablet) 75 mg PO DAILY PRN PRN Reason: Chest Pain Divalproex Sodium (Divalproex Sodium 250 Mg Tablet.) 250 mg PO TID [facility] Last Admin: 12/09/22 08:13 Dose: 250 mg Fluoxetine HCl (Fluoxetine Hcl 20 Mg Capsule) 20 mg PO DAILY [facility] Last Admin: 12/09/22 08:13 Dose: 20 mg Hydroxyzine HCl (Hydroxyzine Hcl 25 Mg Tablet) 50 mg PO Q4H PRN PRN Reason: anxiety/restlessness Last Admin: 12/09/22 11:24 Dose: 50 mg Lidocaine (Lidocaine 4 % Patch Adh..Patch) 1 patch TRANSDERMA DAILY [facility] Last Admin: 12/09/22 08:10 Dose: 1 patch Lisinopril (Lisinopril 5 Mg Tablet) 5 mg PO DAILY [facility]; Protocol Last Admin: 12/09/22 08:13 Dose: 5 mg Magnesium Hydroxide (Milk Of Magnesia 30 Ml Oral.Susp) 30 ml PO DAILY PRN PRN Reason: Constipation Melatonin (Melatonin 3 Mg Tablet) 3 mg PO BEDTIME PRN PRN Reason: Back Pain Last Admin: 12/06/22 20:20 Dose: 3 mg Metoprolol Succinate (Metoprolol Succinate Er 25 Mg Tab.Er.24h) 25 mg PO DAILY [facility]; Protocol Last Admin: 12/09/22 08:13 Dose: 25 mg Non-Formulary Medication (Culsibb-Uaqdwelxzb-Tzo-Caff) 1 cap PO Q4H PRN PRN Reason: Headache Olanzapine (Olanzapine 2.5 Mg Tablet) 2.5 mg PO BID PRN PRN Reason: agitation, activation of SIBS Last Admin: 12/08/22 13:20 Dose: 2.5 mg Olanzapine (Olanzapine 5 Mg Tablet) 5 mg PO BID [facility] Last Admin: 12/09/22 08:13 Dose: 5 mg Trazodone HCl (Trazodone Hcl 50 Mg Tablet) 50 mg PO BEDTIME PRN PRN Reason: Insomnia Last Admin: 12/02/22 20:12 Dose: 50 mg Trazodone HCl (Trazodone Hcl 50 Mg Tablet) 50 mg PO BEDTIME [facility] Last Admin: 12/08/22 20:44 Dose: 50 mg Allergies Allergies Allergy/AdvReac Type Severity Reaction Status Date / Time No Known Allergies Allergy Verified 12/02/22 13:43 Assessment & Plan Assessment & Plan (1) MDD (major depressive disorder), recurrent episode, moderate: Status: Acute Code(s): F33.1 - Major depressive disorder, recurrent, moderate (2) Major neurocognitive disorder: Status: Acute Code(s): F03.90 - Unspecified dementia, unspecified severity, without behavioral disturbance, psychotic disturbance, mood disturbance, and anxiety Plan Mr. Kowalski is a 67 year-old male with hx of MDD, neurocognitive disorder who was transfered from [facility] to hospital after he cut both forearms superfically with razor reporting this was a suicide attempt. On the unit, pt reports he did not intent to end his life and that he was trying to get out of nursing facility. He adamantly denies SI/HI. He asks for help from SW to get new debit card and help him find him an apartment in this area. Pt appears with no insight into cognitive impairments and states he does not need a guardian. Copy of guardianship on chart- Angelo Zhu ([phone]) is guardian with power to sign pt into nursing facility. PLAN CV continue prozac for depression and trazodone for sleep. encourage vistaril for anxiety Obtain collateral information Aftercare planning. Continue one-to-one for safety On December 07 start Depakote 250 mg p.o. t.i.d. to target mood lability. On December 07 start Zyprexa 2.5 p.o. b.i.d. the next day we increased apraxia up to 5 mg p.o. b.i.d. since he was not over-sedated with 2.5 Reason for contiued inpatient stay Substantial Risk for: inability to function, rapid decompensation and med/psych decompensation Time Spent With Patient Time: Total time managing care of this patient today __20__ minutes.
[2022-12-09 18:00] VITALS: BP 128/73; PULSE 67; RESP 18; TEMP 36.2; O2SAT 95
--- NOTE | 2022-12-09 18:09 | HO.PM.IMCN ---
History of Present Illness Data of Consult Service Date: 12/09/22 Requesting physician: Noe Zamora Primary Care Provider: Asim Suarez MD HPI Reason for consult: medical H&P 67 year old male with history ischemic cardiomyopathy, CAD, htn, hld, hx etoh abuse, hx cocaine abuse, atherosclerosis, chronic low back pain, aortic valve replacement, paroxysmal atrial flutter and unspecified dementia admitted to psychiatry with consult placed to medicine for medical H&P. Pt reports last etoh and cocaine use was 9 months ago. Reports he stopped at the advise of his automotive refinisher. Still smokes 2 cigarettes daily. Reports chronic pain in the low back and waking pain in the neck, hips, and shoulders. Takes tylenol and uses lidocaine patches with good effect. No complaints at this time. Review of Systems Review of Systems: Yes all other systems are reviewed and are negative [facility] Medical History (Updated 12/09/22 @ 18:20 by TD Gomes) CAD (coronary artery disease) Chronic anticoagulation Chronic low back pain History of alcohol abuse History of cocaine abuse HTN (hypertension) Ischemic cardiomyopathy Major neurocognitive disorder MDD (major depressive disorder), recurrent episode, moderate Paroxysmal atrial fibrillation Surgical History S/P aortic valve replacement Social History Household Members: Other Household Members Other:: Patient resides in prison Housing: Residential Do you presently have visiting nurse or other home services: No Unable to assess alcohol history related to: Unable to respond Patient Tobacco Use Status: Current everyday Tobacco user Tobacco use type: Cigarette Cigarettes Per Day: 2 Smoked in Last 30 Days: Yes e-Cigarette/Vaping Use: Never Used Patient Interested in Nicotine Replacement: No Patient Given Instructions on How to Stop Smoking: No Second Hand Smoke Exposure: No Use of substances other than those prescribed or required for medical reasons: No Currently Displaying Signs/Symptoms of Drug Intoxication Withdrawal: No Do you feel safe in your current relationship?: No Current Relationship Advance Directives: No Do you have thoughts of harming others: None Do you have a plan to hurt others: No Plan Recently lost weight without trying: Unsure Nutrition Risks: No Nutritional Risk Poor oral hygiene: Yes (dentition poor) service: No Meds Allergies Allergy/AdvReac Type Severity Reaction Status Date / Time No Known Allergies Allergy Verified 12/02/22 13:43 Active Medications: Current Medications Acetaminophen (Acetaminophen 325 Mg Tablet) 650 mg PO Q6H PRN PRN Reason: Headache/Pain Mild Scale (1-3) Last Admin: 12/09/22 08:16 Dose: 650 mg Al Hydroxide/Mg Hydroxide (Magnesium Hydrox/Alum Hydrox 30 Ml Oral.Susp) 30 ml PO Q6H PRN PRN Reason: Heartburn/Nausea Apixaban (Apixaban 5 Mg Tablet) 5 mg PO BID [facility] Last Admin: 12/09/22 08:13 Dose: 5 mg Artificial Tears (Artificial Tears 15 Ml Drops) 1 drop EYE-BOTH BID PRN PRN Reason: Dry Eyes Atorvastatin Calcium (Atorvastatin Calcium 40 Mg Tablet) 40 mg PO BEDTIME [facility] Last Admin: 12/08/22 20:44 Dose: 40 mg Clopidogrel Bisulfate (Clopidogrel Bisulfate 75 Mg Tablet) 75 mg PO DAILY PRN PRN Reason: Chest Pain Divalproex Sodium (Divalproex Sodium 250 Mg Tablet.Dr) 250 mg PO TID [facility] Last Admin: 12/09/22 15:34 Dose: 250 mg Fluoxetine HCl (Fluoxetine Hcl 20 Mg Capsule) 20 mg PO DAILY [facility] Last Admin: 12/09/22 08:13 Dose: 20 mg Hydroxyzine HCl (Hydroxyzine Hcl 25 Mg Tablet) 50 mg PO Q4H PRN PRN Reason: anxiety/restlessness Last Admin: 12/09/22 11:24 Dose: 50 mg Lidocaine (Lidocaine 4 % Patch Adh..Patch) 1 patch TRANSDERMA DAILY [facility] Last Admin: 12/09/22 08:10 Dose: 1 patch Lisinopril (Lisinopril 5 Mg Tablet) 5 mg PO DAILY [facility]; Protocol Last Admin: 12/09/22 08:13 Dose: 5 mg Magnesium Hydroxide (Milk Of Magnesia 30 Ml Oral.Susp) 30 ml PO DAILY PRN PRN Reason: Constipation Melatonin (Melatonin 3 Mg Tablet) 3 mg PO BEDTIME PRN PRN Reason: Back Pain Last Admin: 12/06/22 20:20 Dose: 3 mg Metoprolol Succinate (Metoprolol Succinate Er 25 Mg Tab.Er.24h) 25 mg PO DAILY [facility]; Protocol Last Admin: 12/09/22 08:13 Dose: 25 mg Non-Formulary Medication (Kmephyp-Voxtszgrdj-Tkh-Caff) 1 cap PO Q4H PRN PRN Reason: Headache Olanzapine (Olanzapine 2.5 Mg Tablet) 2.5 mg PO BID PRN PRN Reason: agitation, activation of SIBS Last Admin: 12/08/22 13:20 Dose: 2.5 mg Olanzapine (Olanzapine 5 Mg Tablet) 5 mg PO BID [facility] Last Admin: 12/09/22 08:13 Dose: 5 mg Trazodone HCl (Trazodone Hcl 50 Mg Tablet) 50 mg PO BEDTIME PRN PRN Reason: Insomnia Last Admin: 12/02/22 20:12 Dose: 50 mg Trazodone HCl (Trazodone Hcl 50 Mg Tablet) 50 mg PO BEDTIME [facility] Last Admin: 12/08/22 20:44 Dose: 50 mg Home Medications Medication Instructions Recorded Confirmed Last Taken Type acetaminophen 500 mg tablet 1,000 mg PO BID PRN Headache 12/02/22 12/02/22 Unknown History apixaban 5 mg tablet 5 mg PO BID 12/02/22 12/02/22 Unknown History atorvastatin 40 mg tablet 40 mg PO BEDTIME 12/02/22 12/02/22 Unknown History carboxymethylcellulose sodium 1 drp ophthalmic (eye) BID PRN Dry 12/02/22 12/02/22 Unknown History Eyes clopidogrel 75 mg tablet 75 mg PO DAILY PRN Chest Pain 12/02/22 12/02/22 Unknown History jmsbvsj-dtqdchrxfy-SGA-caffeine 30 1 cap PO Q4H PRN Headache 12/02/22 12/02/22 Unknown History mg-50 mg-325 mg-40 mg capsule diclofenac sodium 1 % topical gel PRN Back Pain 12/02/22 12/02/22 Unknown History (Arthritis Pain (diclofenac)) fluoxetine 40 mg capsule 40 mg PO DAILY 12/02/22 12/02/22 Unknown History lidocaine 5 % topical patch 1 patch topical DAILY 12/02/22 12/02/22 Unknown History (Lidoderm) lisinopril 5 mg tablet 5 mg PO DAILY 12/02/22 12/02/22 Unknown History melatonin 3 mg capsule 3 mg PO BEDTIME PRN Back Pain 12/02/22 12/02/22 Unknown History metoprolol succinate 25 mg 25 mg PO 1XD 12/02/22 12/02/22 Unknown History tablet,extended release 24 hr trazodone 50 mg tablet 50 mg PO BEDTIME 12/02/22 12/02/22 Unknown History Physical Exam Vital Signs and Narrative: Vital Signs: Last Vital Signs Temp 97.6 F 12/09/22 07:30 Pulse 74 12/09/22 07:30 Resp 19 12/09/22 07:30 BP 134/60 12/09/22 07:30 Pulse Ox 98 12/09/22 07:30 O2 Del Method 12/09/22 07:30 BMI result Body Mass Index 21.4 Constitutional - Awake and Alert, No apparent distress Eyes - PERRLA, EOMI Cardiovascular - S1S2, RRR, No edema Respiratory - Normal lung expansion, Normal respiratory effort, No respiratory distress, CTA bilaterally Gastrointestinal - NT / ND; +BS; No rebound or guarding Extremities - no calf tenderness bilaterally, no swelling Skin - Warm/Dry Neurological - Alert & oriented x3, CN II-XII in tact, 5/5 strength BUE and BLE Psychological - Appropriate affect Results Labs 12/03/22 07:50 Assessment and Plan (1) Routine medical exam: Status: Acute Plan 67 year old male with history ischemic cardiomyopathy, CAD, htn, hld, hx etoh abuse, hx cocaine abuse, atherosclerosis, chronic low back pain, aortic valve replacement, paroxysmal atrial flutter and unspecified dementia admitted to psychiatry with consult placed to medicine for medical H&P. #depression -plan per psychiatry #Unspecified dementia -plan per psychiatry #CAD/ischemic cardiomyopathy/atherosclerosis/HLD -no chest pain -continue eliquis, statin, plavix, bb #Paroxysmal atrial fibrillation- rate controlled -continue eliquis -contineu metoprolol #HTN- reasonably controlled -continue home meds #Chronic low back pain -continue home meds/lidocaine patch Thank you for allowing me to participate in this consult. Signing off at this time. Please do not hesitate to call for further questions. Time Spent With Patient Time: Total time managing care of this patient today ____ minutes.
[2022-12-09] MEDS: Atorvastatin Calcium 40 MG TABLET PO (20:11)
[2022-12-09] MEDS: traZODone HCL 50 MG TABLET PO (20:17)
[2022-12-10] MEDS: Acetaminophen 325 MG TABLET 650 MG PO (04:09)
[2022-12-10 07:00] VITALS: BP 125/60; PULSE 70; RESP 16; TEMP 36.8; O2SAT 96
[2022-12-10] MEDS: Metoprolol Succinate ER 25 MG TAB.ER.24H PO (08:08)
[2022-12-10] MEDS: hydrOXYzine HCL 25 MG TABLET 50 MG PO ×3 (08:08→20:00)
[2022-12-10] MEDS: OLANZapine 5 MG TABLET PO ×4 (08:09→20:01)
[2022-12-10] MEDS: Lidocaine 4 % Patch ADH..PATCH 1 PATCH TRANSDERMA (08:09)
[2022-12-10] MEDS: FLUoxetine HCl 20 MG CAPSULE PO (08:09)
[2022-12-10] MEDS: lisinopriL 5 MG TABLET PO (08:09)
[2022-12-10] MEDS: OLANZapine 2.5 MG TABLET PO (08:09)
[2022-12-10] MEDS: Divalproex Sodium 250 MG TABLET.DR PO ×3 (08:09→20:01)
[2022-12-10] MEDS: Apixaban 5 MG TABLET PO ×2 (08:09→20:01)
--- NOTE | 2022-12-10 13:41 | P.PNPSI_ITS ---
Subjective Subjective Date of Service: 12/10/22 Reason For Visit: Aggression Subjective Notes: Conditional Voluntary Interim History: The nursing staff reported the patient was less irritable in a better mood but he gets easily read irritable. He have used all the PRNs frequently. The staff has noticed the patient is not a over sedated with Zyprexa 5 mg so we will increase the p.r.n.. On interview the patient denies new symptoms. Still confused and irritable at times but more pleasant and redirectable. Mental Status Exam Mental Status Exam Patient Appearance: Appropriate Patient Orientation: Person and Situation Level of Consciousness: Awake and Appropriate Patient Behavior: Guarded and Passive Mood Description: Withdrawn Affect Description: Constricted Patient Cognition Impaired: Yes Ability to Follow Directions: Fair Speech Pattern: Clear Hallucinations: None Delusions: Paranoid Ideation Thought Process: Illogical, Distracted and Evasive Thought Content: positive for [place] and positive for Circumstantial Judgement: Fair Diagnostics Vital Signs (24Hr): Vital Signs - 24 hr 12/09/22 18:00 Temperature 97.2 F Pulse Rate 67 Respiratory Rate 18 Blood Pressure 128/73 Pulse Oximetry 95 Oxygen Delivery Method Room Air BMI result Body Mass Index 21.4 Labs 12/03/22 07:50 Medications Medications Current Medications Acetaminophen (Acetaminophen 325 Mg Tablet) 650 mg PO Q6H PRN PRN Reason: Headache/Pain Mild Scale (1-3) Last Admin: 12/10/22 04:09 Dose: 650 mg Al Hydroxide/Mg Hydroxide (Magnesium Hydrox/Alum Hydrox 30 Ml Oral.Susp) 30 ml PO Q6H PRN PRN Reason: Heartburn/Nausea Apixaban (Apixaban 5 Mg Tablet) 5 mg PO BID [facility] Last Admin: 12/10/22 08:09 Dose: 5 mg Artificial Tears (Artificial Tears 15 Ml Drops) 1 drop EYE-BOTH BID PRN PRN Reason: Dry Eyes Atorvastatin Calcium (Atorvastatin Calcium 40 Mg Tablet) 40 mg PO BEDTIME [facility] Last Admin: 12/09/22 20:11 Dose: 40 mg Clopidogrel Bisulfate (Clopidogrel Bisulfate 75 Mg Tablet) 75 mg PO DAILY PRN PRN Reason: Chest Pain Divalproex Sodium (Divalproex Sodium 250 Mg Tablet.) 250 mg PO TID [facility] Last Admin: 12/10/22 08:09 Dose: 250 mg Fluoxetine HCl (Fluoxetine Hcl 20 Mg Capsule) 20 mg PO DAILY [facility] Last Admin: 12/10/22 08:09 Dose: 20 mg Hydroxyzine HCl (Hydroxyzine Hcl 25 Mg Tablet) 50 mg PO Q4H PRN PRN Reason: anxiety/restlessness Last Admin: 12/10/22 08:08 Dose: 50 mg Lidocaine (Lidocaine 4 % Patch Adh..Patch) 1 patch TRANSDERMA DAILY [facility] Last Admin: 12/10/22 08:09 Dose: 1 patch Lisinopril (Lisinopril 5 Mg Tablet) 5 mg PO DAILY [facility]; Protocol Last Admin: 12/10/22 08:09 Dose: 5 mg Magnesium Hydroxide (Milk Of Magnesia 30 Ml Oral.Susp) 30 ml PO DAILY PRN PRN Reason: Constipation Melatonin (Melatonin 3 Mg Tablet) 3 mg PO BEDTIME PRN PRN Reason: Back Pain Last Admin: 12/06/22 20:20 Dose: 3 mg Metoprolol Succinate (Metoprolol Succinate Er 25 Mg Tab.Er.24h) 25 mg PO DAILY [facility]; Protocol Last Admin: 12/10/22 08:08 Dose: 25 mg Non-Formulary Medication (Dmditwb-Fdvdrzwjqh-Tnv-Caff) 1 cap PO Q4H PRN PRN Reason: Headache Olanzapine (Olanzapine 5 Mg Tablet) 5 mg PO BID [facility] Last Admin: 12/10/22 08:09 Dose: 5 mg Olanzapine (Olanzapine 5 Mg Tablet) 5 mg PO Q6H PRN PRN Reason: agitation, activation of SIBS Trazodone HCl (Trazodone Hcl 50 Mg Tablet) 50 mg PO BEDTIME PRN PRN Reason: Insomnia Last Admin: 12/02/22 20:12 Dose: 50 mg Trazodone HCl (Trazodone Hcl 50 Mg Tablet) 50 mg PO BEDTIME [facility] Last Admin: 12/09/22 20:17 Dose: 50 mg Allergies Allergies Allergy/AdvReac Type Severity Reaction Status Date / Time No Known Allergies Allergy Verified 12/02/22 13:43 Assessment & Plan Assessment & Plan (1) Routine medical exam: Status: Acute Code(s): Z00.00 - Encounter for general adult medical examination without abnormal findings Plan 67 year old male with history ischemic cardiomyopathy, CAD, htn, hld, hx etoh abuse, hx cocaine abuse, atherosclerosis, chronic low back pain, aortic valve replacement, paroxysmal atrial flutter and unspecified dementia admitted to psychiatry with consult placed to medicine for medical H&P. #depression -plan per psychiatry #Unspecified dementia -plan per psychiatry #CAD/ischemic cardiomyopathy/atherosclerosis/HLD -no chest pain -continue eliquis, statin, plavix, bb #Paroxysmal atrial fibrillation- rate controlled -continue eliquis -contineu metoprolol #HTN- reasonably controlled -continue home meds #Chronic low back pain -continue home meds/lidocaine patch Thank you for allowing me to participate in this consult. Signing off at this time. Please do not hesitate to call for further questions. Plan 1. Continue with Zyprexa 2.5 mg p.o. b.i.d. and p.r.n.. 2. Increase p.r.n. Zyprexa up to 5 mg p.o. b.i.d on Dec 08 and 5 mg po bid PRN on Dec 10 since he is not oversedated. 3. Continue with Depakote 250 p.o. t.i.d.. 4. Gather more collateral information. Reason for contiued inpatient stay Substantial Risk for: inability to function, rapid decompensation and med/psych decompensation Time Spent With Patient Time: Total time managing care of this patient today _20___ minutes.
[2022-12-10 19:05] VITALS: BP 118/60; PULSE 70; RESP 16; TEMP 36.4; O2SAT 95
[2022-12-10] MEDS: Atorvastatin Calcium 40 MG TABLET PO (20:00)
[2022-12-10] MEDS: traZODone HCL 50 MG TABLET PO (20:01)
[2022-12-11] MEDS: Acetaminophen 325 MG TABLET 650 MG PO ×3 (00:53→16:01)
[2022-12-11] MEDS: traZODone HCL 50 MG TABLET PO ×2 (01:30→20:42)
[2022-12-11] MEDS: OLANZapine 5 MG TABLET PO ×3 (08:18→20:42)
[2022-12-11] MEDS: Metoprolol Succinate ER 25 MG TAB.ER.24H PO (08:18)
[2022-12-11] MEDS: Apixaban 5 MG TABLET PO ×2 (08:18→20:42)
[2022-12-11] MEDS: Divalproex Sodium 250 MG TABLET.DR PO ×3 (08:18→20:42)
[2022-12-11] MEDS: lisinopriL 5 MG TABLET PO (08:18)
[2022-12-11] MEDS: FLUoxetine HCl 20 MG CAPSULE PO (08:18)
[2022-12-11] MEDS: Lidocaine 4 % Patch ADH..PATCH 1 PATCH TRANSDERMA (10:11)
--- NOTE | 2022-12-11 14:09 | P.PNPSI_ITS ---
Subjective Subjective Date of Service: 12/11/22 Reason For Visit: Aggression Subjective Notes: Conditional Voluntary Interim History: The nursing staff reported the patient still on one-to-one for safety, he has history of self-harming and threatened other peers. He has being pleasant and cooperative, taking his medications. The dialysis social worker reported that we have not contacted with his guardian. The occupational therapist reported that he has scored 3.4 on his Cuco test. Mental Status Exam Mental Status Exam Patient Appearance: Appropriate Patient Orientation: Person and Situation Level of Consciousness: Awake and Appropriate Patient Behavior: Guarded and Passive Mood Description: Withdrawn Affect Description: Constricted Patient Cognition Impaired: Yes Ability to Follow Directions: Good Speech Pattern: Clear Hallucinations: None Delusions: Not Present Thought Process: Distracted and Slowed Thinking Thought Content: positive for [place] and positive for Circumstantial Judgement: Fair Diagnostics Vital Signs (24Hr): Vital Signs - 24 hr 12/10/22 19:05 Temperature 97.5 F Pulse Rate 70 Respiratory Rate 16 Blood Pressure 118/60 Pulse Oximetry 95 Oxygen Delivery Method Room Air BMI result Body Mass Index 21.4 Labs 12/03/22 07:50 Medications Medications Current Medications Acetaminophen (Acetaminophen 325 Mg Tablet) 650 mg PO Q6H PRN PRN Reason: Headache/Pain Mild Scale (1-3) Last Admin: 12/11/22 08:22 Dose: 650 mg Al Hydroxide/Mg Hydroxide (Magnesium Hydrox/Alum Hydrox 30 Ml Oral.Susp) 30 ml PO Q6H PRN PRN Reason: Heartburn/Nausea Apixaban (Apixaban 5 Mg Tablet) 5 mg PO BID [facility] Last Admin: 12/11/22 08:18 Dose: 5 mg Artificial Tears (Artificial Tears 15 Ml Drops) 1 drop EYE-BOTH BID PRN PRN Reason: Dry Eyes Atorvastatin Calcium (Atorvastatin Calcium 40 Mg Tablet) 40 mg PO BEDTIME [facility] Last Admin: 12/10/22 20:00 Dose: 40 mg Clopidogrel Bisulfate (Clopidogrel Bisulfate 75 Mg Tablet) 75 mg PO DAILY PRN PRN Reason: Chest Pain Divalproex Sodium (Divalproex Sodium 250 Mg Tablet.Dr) 250 mg PO TID [facility] Last Admin: 12/11/22 08:18 Dose: 250 mg Fluoxetine HCl (Fluoxetine Hcl 20 Mg Capsule) 20 mg PO DAILY [facility] Last Admin: 12/11/22 08:18 Dose: 20 mg Hydroxyzine HCl (Hydroxyzine Hcl 25 Mg Tablet) 50 mg PO Q4H PRN PRN Reason: anxiety/restlessness Last Admin: 12/10/22 20:00 Dose: 50 mg Lidocaine (Lidocaine 4 % Patch Adh..Patch) 1 patch TRANSDERMA DAILY [facility] Last Admin: 12/11/22 10:11 Dose: 1 patch Lisinopril (Lisinopril 5 Mg Tablet) 5 mg PO DAILY [facility]; Protocol Last Admin: 12/11/22 08:18 Dose: 5 mg Magnesium Hydroxide (Milk Of Magnesia 30 Ml Oral.Susp) 30 ml PO DAILY PRN PRN Reason: Constipation Melatonin (Melatonin 3 Mg Tablet) 3 mg PO BEDTIME PRN PRN Reason: Back Pain Last Admin: 12/06/22 20:20 Dose: 3 mg Metoprolol Succinate (Metoprolol Succinate Er 25 Mg Tab.Er.24h) 25 mg PO DAILY [facility]; Protocol Last Admin: 12/11/22 08:18 Dose: 25 mg Non-Formulary Medication (Nsppshz-Hkratgttec-Kfn-Caff) 1 cap PO Q4H PRN PRN Reason: Headache Olanzapine (Olanzapine 5 Mg Tablet) 5 mg PO BID [facility] Last Admin: 12/11/22 08:18 Dose: 5 mg Olanzapine (Olanzapine 5 Mg Tablet) 5 mg PO Q6H PRN PRN Reason: agitation, activation of SIBS Last Admin: 12/10/22 14:01 Dose: 5 mg Olanzapine (Olanzapine 5 Mg Tablet) 5 mg PO DAILY@1700 [facility] Last Admin: 12/10/22 16:48 Dose: 5 mg Trazodone HCl (Trazodone Hcl 50 Mg Tablet) 50 mg PO BEDTIME PRN PRN Reason: Insomnia Last Admin: 12/11/22 01:30 Dose: 50 mg Trazodone HCl (Trazodone Hcl 50 Mg Tablet) 50 mg PO BEDTIME [facility] Last Admin: 12/10/22 20:01 Dose: 50 mg Allergies Allergies Allergy/AdvReac Type Severity Reaction Status Date / Time No Known Allergies Allergy Verified 12/02/22 13:43 Assessment & Plan Assessment & Plan (1) Routine medical exam: Status: Acute Code(s): Z00.00 - Encounter for general adult medical examination without abnormal findings Plan 67 year old male with history ischemic cardiomyopathy, CAD, htn, hld, hx etoh abuse, hx cocaine abuse, atherosclerosis, chronic low back pain, aortic valve replacement, paroxysmal atrial flutter and unspecified dementia admitted to psychiatry with consult placed to medicine for medical H&P. #depression -plan per psychiatry #Unspecified dementia -plan per psychiatry #CAD/ischemic cardiomyopathy/atherosclerosis/HLD -no chest pain -continue eliquis, statin, plavix, bb #Paroxysmal atrial fibrillation- rate controlled -continue eliquis -contineu metoprolol #HTN- reasonably controlled -continue home meds #Chronic low back pain -continue home meds/lidocaine patch Thank you for allowing me to participate in this consult. Signing off at this time. Please do not hesitate to call for further questions. Plan 1. Continue with Zyprexa 2.5 mg p.o. b.i.d. and p.r.n.. 2. Increase p.r.n. Zyprexa up to 5 mg p.o. b.i.d on Dec 08 and 5 mg po bid PRN on Dec 10 since he is not oversedated. On December 11 we increase Zyprexa 5 mg p.o. t.i.d. with no over-sedation 3. Continue with Depakote 250 p.o. t.i.d.. 4. Gather more collateral information. Reason for contiued inpatient stay Substantial Risk for: inability to function, rapid decompensation and med/psych decompensation Time Spent With Patient Time: Total time managing care of this patient today __20__ minutes.
[2022-12-11 18:00] VITALS: BP 125/71; PULSE 70; RESP 16; TEMP 36.6; O2SAT 96
[2022-12-11] MEDS: Atorvastatin Calcium 40 MG TABLET PO (20:42)
[2022-12-12 06:00] VITALS: BP 116/58; PULSE 87; RESP 16; TEMP 36.7; O2SAT 97
[2022-12-12] MEDS: FLUoxetine HCl 20 MG CAPSULE PO (08:38)
[2022-12-12] MEDS: lisinopriL 5 MG TABLET PO (08:38)
[2022-12-12] MEDS: OLANZapine 5 MG TABLET PO ×3 (08:38→20:22)
[2022-12-12] MEDS: Divalproex Sodium 250 MG TABLET.DR PO ×3 (08:38→20:21)
[2022-12-12] MEDS: Apixaban 5 MG TABLET PO ×2 (08:38→20:21)
[2022-12-12] MEDS: Metoprolol Succinate ER 25 MG TAB.ER.24H PO (08:38)
[2022-12-12] MEDS: Acetaminophen 325 MG TABLET 650 MG PO ×2 (08:49→16:52)
--- NOTE | 2022-12-12 11:44 | HO.PSYCHPN ---
Subjective Subjective Date of Service: 12/12/22 Reason For Visit: Aggression Subjective Notes: Other (Guardian) Guardianship: Yes Interim History: Patient was seen and discussed in rounds today. Records and plans were reviewed. He is calmer he is med compliant. Eating and sleeping adequately. Complains of some back pain and is also concerned about discharge planning and talked about his self-destructive urges and needing to be in a place with supervision and safety. No complaints. No changes were made today Medication Compliance: Yes Side effects from medications: No Review of Systems Review of Systems Yes all other systems are reviewed and are negative Diagnostics Vital Signs (24Hr): Vital Signs - 24 hr 12/11/22 18:00 Temperature 97.9 F Pulse Rate 70 Respiratory Rate 16 Blood Pressure 125/71 Pulse Oximetry 96 Oxygen Delivery Method Room Air BMI result Body Mass Index 21.4 Labs 12/03/22 07:50 Medications Medications Current Medications Acetaminophen (Acetaminophen 325 Mg Tablet) 650 mg PO Q6H PRN PRN Reason: Headache/Pain Mild Scale (1-3) Last Admin: 12/12/22 08:49 Dose: 650 mg Al Hydroxide/Mg Hydroxide (Magnesium Hydrox/Alum Hydrox 30 Ml Oral.Susp) 30 ml PO Q6H PRN PRN Reason: Heartburn/Nausea Apixaban (Apixaban 5 Mg Tablet) 5 mg PO BID [facility] Last Admin: 12/12/22 08:38 Dose: 5 mg Artificial Tears (Artificial Tears 15 Ml Drops) 1 drop EYE-BOTH BID PRN PRN Reason: Dry Eyes Atorvastatin Calcium (Atorvastatin Calcium 40 Mg Tablet) 40 mg PO BEDTIME [facility] Last Admin: 12/11/22 20:42 Dose: 40 mg Clopidogrel Bisulfate (Clopidogrel Bisulfate 75 Mg Tablet) 75 mg PO DAILY PRN PRN Reason: Chest Pain Divalproex Sodium (Divalproex Sodium 250 Mg Tablet.Dr) 250 mg PO TID [facility] Last Admin: 12/12/22 08:38 Dose: 250 mg Fluoxetine HCl (Fluoxetine Hcl 20 Mg Capsule) 20 mg PO DAILY [facility] Last Admin: 12/12/22 08:38 Dose: 20 mg Hydroxyzine HCl (Hydroxyzine Hcl 25 Mg Tablet) 50 mg PO Q4H PRN PRN Reason: anxiety/restlessness Last Admin: 12/10/22 20:00 Dose: 50 mg Lidocaine (Lidocaine 4 % Patch Adh..Patch) 1 patch TRANSDERMA DAILY [facility] Last Admin: 12/12/22 08:38 Dose: Not Given Lisinopril (Lisinopril 5 Mg Tablet) 5 mg PO DAILY [facility]; Protocol Last Admin: 12/12/22 08:38 Dose: 5 mg Magnesium Hydroxide (Milk Of Magnesia 30 Ml Oral.Susp) 30 ml PO DAILY PRN PRN Reason: Constipation Melatonin (Melatonin 3 Mg Tablet) 3 mg PO BEDTIME PRN PRN Reason: Back Pain Last Admin: 12/06/22 20:20 Dose: 3 mg Metoprolol Succinate (Metoprolol Succinate Er 25 Mg Tab.Er.24h) 25 mg PO DAILY [facility]; Protocol Last Admin: 12/12/22 08:38 Dose: 25 mg Non-Formulary Medication (Xuchmno-Mvtgxrrkiz-Dfy-Caff) 1 cap PO Q4H PRN PRN Reason: Headache Olanzapine (Olanzapine 5 Mg Tablet) 5 mg PO BID [facility] Last Admin: 12/12/22 08:38 Dose: 5 mg Olanzapine (Olanzapine 5 Mg Tablet) 5 mg PO Q6H PRN PRN Reason: agitation, activation of SIBS Last Admin: 12/10/22 14:01 Dose: 5 mg Olanzapine (Olanzapine 5 Mg Tablet) 5 mg PO DAILY@1700 [facility] Last Admin: 12/11/22 16:01 Dose: 5 mg Trazodone HCl (Trazodone Hcl 50 Mg Tablet) 50 mg PO BEDTIME PRN PRN Reason: Insomnia Last Admin: 12/11/22 01:30 Dose: 50 mg Trazodone HCl (Trazodone Hcl 50 Mg Tablet) 50 mg PO BEDTIME [facility] Last Admin: 12/11/22 20:42 Dose: 50 mg Allergies Allergies Allergy/AdvReac Type Severity Reaction Status Date / Time No Known Allergies Allergy Verified 12/02/22 13:43 Assessment & Plan Assessment & Plan (1) Routine medical exam: Status: Acute Code(s): Z00.00 - Encounter for general adult medical examination without abnormal findings Plan 67 year old male with history ischemic cardiomyopathy, CAD, htn, hld, hx etoh abuse, hx cocaine abuse, atherosclerosis, chronic low back pain, aortic valve replacement, paroxysmal atrial flutter and unspecified dementia admitted to psychiatry with consult placed to medicine for medical H&P. #depression -plan per psychiatry #Unspecified dementia -plan per psychiatry #CAD/ischemic cardiomyopathy/atherosclerosis/HLD -no chest pain -continue eliquis, statin, plavix, bb #Paroxysmal atrial fibrillation- rate controlled -continue eliquis -contineu metoprolol #HTN- reasonably controlled -continue home meds #Chronic low back pain -continue home meds/lidocaine patch Thank you for allowing me to participate in this consult. Signing off at this time. Please do not hesitate to call for further questions. Plan 1. Continue with Zyprexa 2.5 mg p.o. b.i.d. and p.r.n.. 2. Increase p.r.n. Zyprexa up to 5 mg p.o. b.i.d on Dec 08 and 5 mg po bid PRN on Dec 10 since he is not oversedated. On December 11 we increase Zyprexa 5 mg p.o. t.i.d. with no over-sedation 3. Continue with Depakote 250 p.o. t.i.d.. 4. Gather more collateral information. 12/12: Continue current regimen and plans Reason for contiued inpatient stay Substantial Risk for: harm to self and med/psych decompensation Time Spent With Patient Time: Total time managing care of this patient today ____ minutes.
[2022-12-12] MEDS: hydrOXYzine HCL 25 MG TABLET 50 MG PO (17:50)
[2022-12-12 18:00] VITALS: BP 129/70; PULSE 78; RESP 18; TEMP 36.4; O2SAT 96
[2022-12-12] MEDS: Atorvastatin Calcium 40 MG TABLET PO (20:21)
[2022-12-12] MEDS: traZODone HCL 50 MG TABLET PO (20:22)
[2022-12-13 06:00] VITALS: BP 133/64; PULSE 80; RESP 18; TEMP 36; O2SAT 96
[2022-12-13] MEDS: Metoprolol Succinate ER 25 MG TAB.ER.24H PO (07:58)
[2022-12-13] MEDS: lisinopriL 5 MG TABLET PO (07:58)
[2022-12-13] MEDS: FLUoxetine HCl 20 MG CAPSULE PO (07:58)
[2022-12-13] MEDS: Apixaban 5 MG TABLET PO ×2 (07:59→20:29)
[2022-12-13] MEDS: Divalproex Sodium 250 MG TABLET.DR PO ×3 (07:59→20:30)
[2022-12-13] MEDS: OLANZapine 5 MG TABLET PO ×3 (07:59→20:30)
--- NOTE | 2022-12-13 11:11 | HO.PSYCHPN ---
Subjective Subjective Date of Service: 12/13/22 Reason For Visit: Aggression Subjective Notes: Other (Guardian) Guardianship: Yes Interim History: Patient attempted to be seen but discussed in rounds today. Records and plans were reviewed. I made 3 attempts to wake him up but he was fast asleep. Medication Compliance: Yes Side effects from medications: No Review of Systems Review of Systems Yes Unobtainable due to mental status Mental Status Exam Mental Status Exam Narrative: He could not be aroused today Diagnostics Vital Signs (24Hr): Vital Signs - 24 hr 12/12/22 18:00 Temperature 97.5 F Pulse Rate 78 Respiratory Rate 18 Blood Pressure 129/70 Pulse Oximetry 96 Oxygen Delivery Method Room Air BMI result Body Mass Index 21.4 Labs 12/03/22 07:50 Medications Medications Current Medications Acetaminophen (Acetaminophen 325 Mg Tablet) 650 mg PO Q6H PRN PRN Reason: Headache/Pain Mild Scale (1-3) Last Admin: 12/12/22 16:52 Dose: 650 mg Al Hydroxide/Mg Hydroxide (Magnesium Hydrox/Alum Hydrox 30 Ml Oral.Susp) 30 ml PO Q6H PRN PRN Reason: Heartburn/Nausea Apixaban (Apixaban 5 Mg Tablet) 5 mg PO BID [facility] Last Admin: 12/13/22 07:59 Dose: 5 mg Artificial Tears (Artificial Tears 15 Ml Drops) 1 drop EYE-BOTH BID PRN PRN Reason: Dry Eyes Atorvastatin Calcium (Atorvastatin Calcium 40 Mg Tablet) 40 mg PO BEDTIME [facility] Last Admin: 12/12/22 20:21 Dose: 40 mg Clopidogrel Bisulfate (Clopidogrel Bisulfate 75 Mg Tablet) 75 mg PO DAILY PRN PRN Reason: Chest Pain Divalproex Sodium (Divalproex Sodium 250 Mg Tablet.Dr) 250 mg PO TID [facility] Last Admin: 12/13/22 07:59 Dose: 250 mg Fluoxetine HCl (Fluoxetine Hcl 20 Mg Capsule) 20 mg PO DAILY [facility] Last Admin: 12/13/22 07:58 Dose: 20 mg Hydroxyzine HCl (Hydroxyzine Hcl 25 Mg Tablet) 50 mg PO Q4H PRN PRN Reason: anxiety/restlessness Last Admin: 12/12/22 17:50 Dose: 50 mg Lidocaine (Lidocaine 4 % Patch Adh..Patch) 1 patch TRANSDERMA DAILY [facility] Last Admin: 12/13/22 08:00 Dose: Not Given Lisinopril (Lisinopril 5 Mg Tablet) 5 mg PO DAILY [facility]; Protocol Last Admin: 12/13/22 07:58 Dose: 5 mg Magnesium Hydroxide (Milk Of Magnesia 30 Ml Oral.Susp) 30 ml PO DAILY PRN PRN Reason: Constipation Melatonin (Melatonin 3 Mg Tablet) 3 mg PO BEDTIME PRN PRN Reason: Back Pain Last Admin: 12/06/22 20:20 Dose: 3 mg Metoprolol Succinate (Metoprolol Succinate Er 25 Mg Tab.Er.24h) 25 mg PO DAILY [facility]; Protocol Last Admin: 12/13/22 07:58 Dose: 25 mg Non-Formulary Medication (Sswblfd-Lidaeifhhc-Mfk-Caff) 1 cap PO Q4H PRN PRN Reason: Headache Olanzapine (Olanzapine 5 Mg Tablet) 5 mg PO BID [facility] Last Admin: 12/13/22 07:59 Dose: 5 mg Olanzapine (Olanzapine 5 Mg Tablet) 5 mg PO Q6H PRN PRN Reason: agitation, activation of SIBS Last Admin: 12/10/22 14:01 Dose: 5 mg Olanzapine (Olanzapine 5 Mg Tablet) 5 mg PO DAILY@1700 [facility] Last Admin: 12/12/22 16:45 Dose: 5 mg Trazodone HCl (Trazodone Hcl 50 Mg Tablet) 50 mg PO BEDTIME PRN PRN Reason: Insomnia Last Admin: 12/11/22 01:30 Dose: 50 mg Trazodone HCl (Trazodone Hcl 50 Mg Tablet) 50 mg PO BEDTIME [facility] Last Admin: 12/12/22 20:22 Dose: 50 mg Allergies Allergies Allergy/AdvReac Type Severity Reaction Status Date / Time No Known Allergies Allergy Verified 12/02/22 13:43 Assessment & Plan Assessment & Plan (1) Routine medical exam: Status: Acute Code(s): Z00.00 - Encounter for general adult medical examination without abnormal findings Plan 67 year old male with history ischemic cardiomyopathy, CAD, htn, hld, hx etoh abuse, hx cocaine abuse, atherosclerosis, chronic low back pain, aortic valve replacement, paroxysmal atrial flutter and unspecified dementia admitted to psychiatry with consult placed to medicine for medical H&P. #depression -plan per psychiatry #Unspecified dementia -plan per psychiatry #CAD/ischemic cardiomyopathy/atherosclerosis/HLD -no chest pain -continue eliquis, statin, plavix, bb #Paroxysmal atrial fibrillation- rate controlled -continue eliquis -contineu metoprolol #HTN- reasonably controlled -continue home meds #Chronic low back pain -continue home meds/lidocaine patch Thank you for allowing me to participate in this consult. Signing off at this time. Please do not hesitate to call for further questions. Plan 1. Continue with Zyprexa 2.5 mg p.o. b.i.d. and p.r.n.. 2. Increase p.r.n. Zyprexa up to 5 mg p.o. b.i.d on Dec 08 and 5 mg po bid PRN on Dec 10 since he is not oversedated. On December 11 we increase Zyprexa 5 mg p.o. t.i.d. with no over-sedation 3. Continue with Depakote 250 p.o. t.i.d.. 4. Gather more collateral information. 12/12: Continue current regimen and plans 12/13: Continue current plans Reason for contiued inpatient stay Substantial Risk for: inability to function Time Spent With Patient Time: Total time managing care of this patient today ____ minutes.
[2022-12-13] MEDS: Acetaminophen 325 MG TABLET 650 MG PO (16:18)
[2022-12-13] MEDS: hydrOXYzine HCL 25 MG TABLET 50 MG PO (17:40)
[2022-12-13 18:00] VITALS: BP 114/64; PULSE 76; RESP 18; TEMP 36.2; O2SAT 95
[2022-12-13] MEDS: Atorvastatin Calcium 40 MG TABLET PO (20:29)
[2022-12-13] MEDS: traZODone HCL 50 MG TABLET PO (20:30)
[2022-12-14 08:10] VITALS: BP 125/72; PULSE 110; RESP 18; O2SAT 4
[2022-12-14] MEDS: Lidocaine 4 % Patch ADH..PATCH 1 PATCH TRANSDERMA (08:11)
[2022-12-14] MEDS: Metoprolol Succinate ER 25 MG TAB.ER.24H PO (08:12)
[2022-12-14] MEDS: OLANZapine 5 MG TABLET PO ×3 (08:13→20:13)
[2022-12-14] MEDS: Divalproex Sodium 250 MG TABLET.DR PO ×3 (08:13→20:13)
[2022-12-14] MEDS: lisinopriL 5 MG TABLET PO (08:13)
[2022-12-14] MEDS: Apixaban 5 MG TABLET PO ×2 (08:14→20:13)
[2022-12-14] MEDS: FLUoxetine HCl 20 MG CAPSULE PO (08:14)
[2022-12-14] MEDS: Acetaminophen 325 MG TABLET 650 MG PO ×2 (08:17→17:12)
--- NOTE | 2022-12-14 10:05 | P.PNPSI_ITS ---
Subjective Subjective Date of Service: 12/14/22 Reason For Visit: Aggression Subjective Notes: Other (Guardian) Guardianship: Yes Interim History: Patient was seen and discussed in rounds today. Records, plans and labs were reviewed. He is doing better and is in a better mood today. He is not anxious. He is visible. No behavioral issues. Complains of some back and shoulder pain. He is medication compliant. No complaints or side effects. No changes were made today Medication Compliance: Yes Side effects from medications: No Review of Systems Review of Systems Shoulder pain Yes Unobtainable due to mental status Mental Status Exam Mental Status Exam Narrative: In today's visit he is alert, pleasant and interactive within his means. Speech is slightly impaired. Moderate eye contact. Affect is appropriate and varied. Slight anxiety present. No signs of psychosis. Cognitively impaired. No SI. Judgment is impaired Diagnostics Vital Signs (24Hr): Vital Signs - 24 hr 12/13/22 18:00 12/14/22 08:10 Temperature 97.1 F Pulse Rate 76 110 H Respiratory Rate 18 18 Blood Pressure 114/64 125/72 Pulse Oximetry 95 4 L Oxygen Delivery Method Room Air Room Air BMI result Body Mass Index 21.4 Labs 12/03/22 07:50 Medications Medications Current Medications Acetaminophen (Acetaminophen 325 Mg Tablet) 650 mg PO Q6H PRN PRN Reason: Headache/Pain Mild Scale (1-3) Last Admin: 12/14/22 08:17 Dose: 650 mg Al Hydroxide/Mg Hydroxide (Magnesium Hydrox/Alum Hydrox 30 Ml Oral.Susp) 30 ml PO Q6H PRN PRN Reason: Heartburn/Nausea Apixaban (Apixaban 5 Mg Tablet) 5 mg PO BID [facility] Last Admin: 12/14/22 08:14 Dose: 5 mg Artificial Tears (Artificial Tears 15 Ml Drops) 1 drop EYE-BOTH BID PRN PRN Reason: Dry Eyes Atorvastatin Calcium (Atorvastatin Calcium 40 Mg Tablet) 40 mg PO BEDTIME [facility] Last Admin: 12/13/22 20:29 Dose: 40 mg Clopidogrel Bisulfate (Clopidogrel Bisulfate 75 Mg Tablet) 75 mg PO DAILY PRN PRN Reason: Chest Pain Divalproex Sodium (Divalproex Sodium 250 Mg Tablet.) 250 mg PO TID [facility] Last Admin: 12/14/22 08:13 Dose: 250 mg Fluoxetine HCl (Fluoxetine Hcl 20 Mg Capsule) 20 mg PO DAILY [facility] Last Admin: 12/14/22 08:14 Dose: 20 mg Hydroxyzine HCl (Hydroxyzine Hcl 25 Mg Tablet) 50 mg PO Q4H PRN PRN Reason: anxiety/restlessness Last Admin: 12/13/22 17:40 Dose: 50 mg Lidocaine (Lidocaine 4 % Patch Adh..Patch) 1 patch TRANSDERMA DAILY [facility] Last Admin: 12/14/22 08:11 Dose: 1 patch Lisinopril (Lisinopril 5 Mg Tablet) 5 mg PO DAILY [facility]; Protocol Last Admin: 12/14/22 08:13 Dose: 5 mg Magnesium Hydroxide (Milk Of Magnesia 30 Ml Oral.Susp) 30 ml PO DAILY PRN PRN Reason: Constipation Melatonin (Melatonin 3 Mg Tablet) 3 mg PO BEDTIME PRN PRN Reason: Back Pain Last Admin: 12/06/22 20:20 Dose: 3 mg Metoprolol Succinate (Metoprolol Succinate Er 25 Mg Tab.Er.24h) 25 mg PO DAILY [facility]; Protocol Last Admin: 12/14/22 08:12 Dose: 25 mg Non-Formulary Medication (Aagaqqx-Vkawbfkhcs-Pnk-Caff) 1 cap PO Q4H PRN PRN Reason: Headache Olanzapine (Olanzapine 5 Mg Tablet) 5 mg PO BID [facility] Last Admin: 12/14/22 08:13 Dose: 5 mg Olanzapine (Olanzapine 5 Mg Tablet) 5 mg PO Q6H PRN PRN Reason: agitation, activation of SIBS Last Admin: 12/10/22 14:01 Dose: 5 mg Olanzapine (Olanzapine 5 Mg Tablet) 5 mg PO DAILY@1700 [facility] Last Admin: 12/13/22 16:18 Dose: 5 mg Trazodone HCl (Trazodone Hcl 50 Mg Tablet) 50 mg PO BEDTIME PRN PRN Reason: Insomnia Last Admin: 12/11/22 01:30 Dose: 50 mg Trazodone HCl (Trazodone Hcl 50 Mg Tablet) 50 mg PO BEDTIME [facility] Last Admin: 12/13/22 20:30 Dose: 50 mg Allergies Allergies Allergy/AdvReac Type Severity Reaction Status Date / Time No Known Allergies Allergy Verified 12/02/22 13:43 Assessment & Plan Assessment & Plan (1) Routine medical exam: Status: Acute Code(s): Z00.00 - Encounter for general adult medical examination without abnormal fin dings Plan 67 year old male with history ischemic cardiomyopathy, CAD, htn, hld, hx etoh abuse, hx cocaine abuse, atherosclerosis, chronic low back pain, aortic valve replacement, paroxysmal atrial flutter and unspecified dementia admitted to psychiatry with consult placed to medicine for medical H&P. #depression -plan per psychiatry #Unspecified dementia -plan per psychiatry #CAD/ischemic cardiomyopathy/atherosclerosis/HLD -no chest pain -continue eliquis, statin, plavix, bb #Paroxysmal atrial fibrillation- rate controlled -continue eliquis -contineu metoprolol #HTN- reasonably controlled -continue home meds #Chronic low back pain -continue home meds/lidocaine patch Thank you for allowing me to participate in this consult. Signing off at this time. Please do not hesitate to call for further questions. Plan 1. Continue with Zyprexa 2.5 mg p.o. b.i.d. and p.r.n.. 2. Increase p.r.n. Zyprexa up to 5 mg p.o. b.i.d on Dec 08 and 5 mg po bid PRN on Dec 10 since he is not oversedated. On December 11 we increase Zyprexa 5 mg p.o. t.i.d. with no over-sedation 3. Continue with Depakote 250 p.o. t.i.d.. 4. Gather more collateral information. 12/12: Continue current regimen and plans 12/13: Continue current plans 12/14: Continue current plans and regimen Reason for contiued inpatient stay Substantial Risk for: inability to function and med/psych decompensation Time Spent With Patient Time: Total time managing care of this patient today ____ minutes.
[2022-12-14 11:00] LABS: COVID-19 Test Negative (Negative); IDNOW Serial# 9DB6401D
[2022-12-14 19:36] VITALS: BP 120/72; PULSE 88; RESP 18; TEMP 36.4; O2SAT 96
[2022-12-14] MEDS: traZODone HCL 50 MG TABLET PO (20:12)
[2022-12-14] MEDS: Atorvastatin Calcium 40 MG TABLET PO (20:13)
[2022-12-15 07:30] VITALS: BP 143/82; PULSE 84; RESP 16; TEMP 36.8; O2SAT 95
[2022-12-15] MEDS: Divalproex Sodium 250 MG TABLET.DR PO ×3 (08:11→19:49)
[2022-12-15] MEDS: Metoprolol Succinate ER 25 MG TAB.ER.24H PO (08:11)
[2022-12-15] MEDS: Apixaban 5 MG TABLET PO ×2 (08:11→19:49)
[2022-12-15] MEDS: OLANZapine 5 MG TABLET PO ×3 (08:11→19:49)
[2022-12-15] MEDS: Lidocaine 4 % Patch ADH..PATCH 1 PATCH TRANSDERMA (08:11)
[2022-12-15] MEDS: FLUoxetine HCl 20 MG CAPSULE PO (08:11)
[2022-12-15] MEDS: lisinopriL 5 MG TABLET PO (08:11)
[2022-12-15] MEDS: Acetaminophen 325 MG TABLET 650 MG PO ×2 (08:17→19:52)
--- NOTE | 2022-12-15 09:51 | P.PNPSI_ITS ---
Subjective Subjective Date of Service: 12/15/22 Reason For Visit: Aggression Subjective Notes: Conditional Voluntary Interim History: The nursing staff reported the patient had been tested COVID negative he slept until 04:00 o'clock in the morning he is more pleasant and cooperative, his vital stable signs had been stable. He the social work case manager reported that he his intermediate facility will take him back. On interview the patient denies new symptoms he feels okay and he wants to be discharged soon. No aggressivity so far Mental Status Exam Mental Status Exam Patient Appearance: Appropriate Patient Orientation: Person and Situation Level of Consciousness: Awake and Appropriate Mood Description: Constricted Affect Description: Labile Patient Cognition Impaired: Yes Ability to Follow Directions: Good Speech Pattern: Clear Hallucinations: None Delusions: Not Present Thought Process: Distracted and Evasive Thought Content: positive for [place] and positive for Circumstantial Judgement: Fair Diagnostics Vital Signs (24Hr): Vital Signs - 24 hr 12/14/22 19:36 Temperature 97.6 F Pulse Rate 88 Respiratory Rate 18 Blood Pressure 120/72 Pulse Oximetry 96 Oxygen Delivery Method Room Air BMI result Body Mass Index 21.4 Labs 12/03/22 07:50 Labs: Laboratory Results - last 48 hr 12/14/22 10:30 COVID-19 ([facility]) Negative COVID-19 Clin Com See Note Medications Medications Current Medications Acetaminophen (Acetaminophen 325 Mg Tablet) 650 mg PO Q6H PRN PRN Reason: Headache/Pain Mild Scale (1-3) Last Admin: 12/15/22 08:17 Dose: 650 mg Al Hydroxide/Mg Hydroxide (Magnesium Hydrox/Alum Hydrox 30 Ml Oral.Susp) 30 ml PO Q6H PRN PRN Reason: Heartburn/Nausea Apixaban (Apixaban 5 Mg Tablet) 5 mg PO BID [facility] Last Admin: 12/15/22 08:11 Dose: 5 mg Artificial Tears (Artificial Tears 15 Ml Drops) 1 drop EYE-BOTH BID PRN PRN Reason: Dry Eyes Atorvastatin Calcium (Atorvastatin Calcium 40 Mg Tablet) 40 mg PO BEDTIME [facility] Last Admin: 12/14/22 20:13 Dose: 40 mg Clopidogrel Bisulfate (Clopidogrel Bisulfate 75 Mg Tablet) 75 mg PO DAILY PRN PRN Reason: Chest Pain Divalproex Sodium (Divalproex Sodium 250 Mg Tablet.Dr) 250 mg PO TID [facility] Last Admin: 12/15/22 08:11 Dose: 250 mg Fluoxetine HCl (Fluoxetine Hcl 20 Mg Capsule) 20 mg PO DAILY [facility] Last Admin: 12/15/22 08:11 Dose: 20 mg Hydroxyzine HCl (Hydroxyzine Hcl 25 Mg Tablet) 50 mg PO Q4H PRN PRN Reason: anxiety/restlessness Last Admin: 12/13/22 17:40 Dose: 50 mg Lidocaine (Lidocaine 4 % Patch Adh..Patch) 1 patch TRANSDERMA DAILY [facility] Last Admin: 12/15/22 08:11 Dose: 1 patch Lisinopril (Lisinopril 5 Mg Tablet) 5 mg PO DAILY [facility]; Protocol Last Admin: 12/15/22 08:11 Dose: 5 mg Magnesium Hydroxide (Milk Of Magnesia 30 Ml Oral.Susp) 30 ml PO DAILY PRN PRN Reason: Constipation Melatonin (Melatonin 3 Mg Tablet) 3 mg PO BEDTIME PRN PRN Reason: Back Pain Last Admin: 12/06/22 20:20 Dose: 3 mg Metoprolol Succinate (Metoprolol Succinate Er 25 Mg Tab.Er.24h) 25 mg PO DAILY [facility]; Protocol Last Admin: 12/15/22 08:11 Dose: 25 mg Non-Formulary Medication (Ebozxhv-Cyyreugbis-Aai-Caff) 1 cap PO Q4H PRN PRN Reason: Headache Olanzapine (Olanzapine 5 Mg Tablet) 5 mg PO BID [facility] Last Admin: 12/15/22 08:11 Dose: 5 mg Olanzapine (Olanzapine 5 Mg Tablet) 5 mg PO Q6H PRN PRN Reason: agitation, activation of SIBS Last Admin: 12/10/22 14:01 Dose: 5 mg Olanzapine (Olanzapine 5 Mg Tablet) 5 mg PO DAILY@1700 [facility] Last Admin: 12/14/22 17:12 Dose: 5 mg Trazodone HCl (Trazodone Hcl 50 Mg Tablet) 50 mg PO BEDTIME PRN PRN Reason: Insomnia Last Admin: 12/11/22 01:30 Dose: 50 mg Trazodone HCl (Trazodone Hcl 50 Mg Tablet) 50 mg PO BEDTIME [facility] Last Admin: 12/14/22 20:12 Dose: 50 mg Allergies Allergies Allergy/AdvReac Type Severity Reaction Status Date / Time No Known Allergies Allergy Verified 12/02/22 13:43 Assessment & Plan Assessment & Plan (1) Routine medical exam: Status: Acute Code(s): Z00.00 - Encounter for general adult medical examination without abnormal findings (2) MDD (major depressive disorder), recurrent episode, moderate: Status: Acute Code(s): F33.1 - Major depressive disorder, recurrent, moderate (3) Major neurocognitive disorder: Status: Acute Code(s): F03.90 - Unspecified dementia, unspecified severity, without behavioral disturbance, psychotic disturbance, mood disturbance, and anxiety Plan 67 year old male with history ischemic cardiomyopathy, CAD, htn, hld, hx etoh abuse, hx cocaine abuse, atherosclerosis, chronic low back pain, aortic valve replacement, paroxysmal atrial flutter and unspecified dementia admitted to psychiatry with consult placed to medicine for medical H&P. #depression -plan per psychiatry #Unspecified dementia -plan per psychiatry #CAD/ischemic cardiomyopathy/atherosclerosis/HLD -no chest pain -continue eliquis, statin, plavix, bb #Paroxysmal atrial fibrillation- rate controlled -continue eliquis -contineu metoprolol #HTN- reasonably controlled -continue home meds #Chronic low back pain -continue home meds/lidocaine patch Thank you for allowing me to participate in this consult. Signing off at this time. Please do not hesitate to call for further questions. Plan 1. Continue with Zyprexa 2.5 mg p.o. b.i.d. and p.r.n.. 2. Increase p.r.n. Zyprexa up to 5 mg p.o. b.i.d on Dec 08 and 5 mg po bid PRN on Dec 10 since he is not oversedated. On December 11 we increase Zyprexa 5 mg p.o. t.i.d. with no over-sedation 3. Continue with Depakote 250 p.o. t.i.d.. 4. Discharge for tomorrow Reason for contiued inpatient stay Substantial Risk for: harm to self, harm to others, inability to function, rapid decompensation and med/psych decompensation Time Spent With Patient Time: Total time managing care of this patient today _20___ minutes.
[2022-12-15 18:00] VITALS: BP 134/65; PULSE 77; RESP 16; TEMP 36.3; O2SAT 95
[2022-12-15] MEDS: traZODone HCL 50 MG TABLET PO (19:49)
[2022-12-15] MEDS: Atorvastatin Calcium 40 MG TABLET PO (19:50)
[2022-12-16 07:30] VITALS: BP 132/70; PULSE 64; RESP 16; TEMP 36.5; O2SAT 94
[2022-12-16] MEDS: lisinopriL 5 MG TABLET PO (07:42)
[2022-12-16] MEDS: OLANZapine 5 MG TABLET PO (07:42)
[2022-12-16] MEDS: Lidocaine 4 % Patch ADH..PATCH 1 PATCH TRANSDERMA (07:42)
[2022-12-16] MEDS: Metoprolol Succinate ER 25 MG TAB.ER.24H PO (07:42)
[2022-12-16] MEDS: Divalproex Sodium 250 MG TABLET.DR PO (07:42)
[2022-12-16] MEDS: FLUoxetine HCl 20 MG CAPSULE PO (07:42)
[2022-12-16] MEDS: Apixaban 5 MG TABLET PO (07:42)
--- NOTE | 2022-12-16 07:59 | PM.PSYDC ---
DS: Providers Provider Date of Service: 12/16/22 Date of admission: 12/02/22 13:12 Date of discharge: 12/16/22 Primary care physician: Asim Suarez MD Consults: 12/09/22 10:58 Consult to Hospitalist Routine Consulting Provider: Hospitalist Reason For Exam: No physical exam on admission DS: Diagnosis Discharge Diagnosis (1) Routine medical exam: Status: Acute (2) MDD (major depressive disorder), recurrent episode, moderate: Status: Acute (3) Major neurocognitive disorder: Status: Acute DS: Medications Discharge Medications Home Medications: Home Medications Medication Instructions Recorded Confirmed acetaminophen 500 mg tablet 1,000 mg PO BID PRN Headache 12/02/22 12/02/22 apixaban 5 mg tablet 5 mg PO BID 12/02/22 12/02/22 atorvastatin 40 mg tablet 40 mg PO BEDTIME 12/02/22 12/02/22 carboxymethylcellulose sodium 1 drp ophthalmic (eye) BID PRN Dry 12/02/22 12/02/22 Eyes clopidogrel 75 mg tablet 75 mg PO DAILY PRN Chest Pain 12/02/22 12/02/22 dktxliv-keumlyussf-AXN-caffeine 30 1 cap PO Q4H PRN Headache 12/02/22 12/02/22 mg-50 mg-325 mg-40 mg capsule diclofenac sodium 1 % topical gel PRN Back Pain 12/02/22 12/02/22 (Arthritis Pain (diclofenac)) fluoxetine 40 mg capsule 40 mg PO DAILY 12/02/22 12/02/22 lidocaine 5 % topical patch 1 patch topical DAILY 12/02/22 12/02/22 (Lidoderm) lisinopril 5 mg tablet 5 mg PO DAILY 12/02/22 12/02/22 melatonin 3 mg capsule 3 mg PO BEDTIME PRN Back Pain 12/02/22 12/02/22 metoprolol succinate 25 mg 25 mg PO 1XD 12/02/22 12/02/22 tablet,extended release 24 hr trazodone 50 mg tablet 50 mg PO BEDTIME 12/02/22 12/02/22 Mental Status Exam Mental Status Exam Patient Appearance: Well Grooomed and Appropriate Patient Orientation: Person and Situation Level of Consciousness: Awake and Appropriate Patient Behavior: Appropriate and Guarded Mood Description: Calm Affect Description: Labile Patient Cognition Impaired: Yes Ability to Follow Directions: Fair Speech Pattern: Clear Hallucinations: None Delusions: Not Present Thought Process: Distracted and Slowed Thinking Thought Content: positive for [place], positive for Circumstantial and positive for Poverty of Content Judgement: Poor Data Data Completed and Pending Completed studies during hospitalization [Text1]: 12/14/22 10:30 COVID-19 ([facility]) Negative COVID-19 Clin Com See Note DS: Summary Hospital Course Hospital Course: The patient is a 67-year-old descent male, transferred from a hospital out of our catchment area due to increased agitation and physical aggression. Please see the HPI on the admission note for further details. On admission, the patient was aggressive at times, threatening to hurt staff and specific peer. He was initially started on Depakote to target anxiety and irritability. Since it was non-effective, he was started later on Zyprexa to target mood lability, psychosis and poor sleep. While he was on the unit, he had several episodes of agitation that requiered the help of security and IM medications. The patient's behavior improved, he was cognitively impaired but able to have some insight on his disruptive behavior. We titrated the Zyprexa up to 5 mg po tid with fair improvement. We also lowered his Prozac from 40 to 20 mg since it was too activating He also reported improvement of his anxiety with Vistaril that we scheduled tid and PRN. Anticholinergics didn't have the effect of confusion on this patient. Since his behavior improved, discharge planning was discussed. Time spent discussing smoking cessation with patient: 3 to 10 minutes Status at Discharge Cognitive/behavioral status at discharge: Impaired at baseline Functional status at discharge: independent ambulation Overall status at discharge: patient is back to baseline Time Spent with Patient Time attestation: Total time managing care of this patient today __30__ minutes. Time spent: Less than 30 minutes Discharge Plan Discharge Patient Disposition: er [facility] Discharge Diagnosis: Dementia Psychosis Impulse control disorder Referrals: Asim Suarez MD [Primary Care Provider] - 1 Week Discharge Medications: New acetaminophen 325 mg Tablet 650 mg PO Q6H PRN (Reason: Headache/Pain Mild Scale (1-3)) 30 Days Qty: 90 0RF divalproex 250 mg Tablet,Delayed Release (Dr/Ec) 250 mg PO TID 30 Days Qty: 90 0RF trazodone 50 mg Tablet 50 mg PO BEDTIME PRN (Reason: Insomnia) 30 Days Qty: 30 0RF hydroxyzine HCl 25 mg Tablet 50 mg PO Q4H PRN (Reason: Anxiety/Restlessness) 30 Days Qty: 120 0RF fluoxetine 20 mg Capsule 20 mg PO DAILY 30 Days Qty: 30 0RF olanzapine [Zyprexa] 5 mg tablet 5 mg PO TID Qty: 90 0RF Continued atorvastatin 40 mg Tablet 40 mg PO BEDTIME 30 Days Qty: 30 0RF trazodone 50 mg Tablet 50 mg PO BEDTIME 30 Days Qty: 30 0RF clopidogrel 75 mg Tablet 75 mg PO DAILY PRN (Reason: Chest Pain) 30 Days Qty: 30 0RF lcpojps-xpnsobtygj-HGA-caff [id number] mg Capsule 1 cap PO Q4H PRN (Reason: Headache) 10 Days Qty: 10 0RF lidocaine [Lidoderm] 5 % Adhesive Patch,Medicated 1 patch TOPICAL DAILY 30 Days Qty: 30 0RF Rx Instructions: leave on most painful area for up to 12 hrs lisinopril 5 mg Tablet 5 mg PO DAILY 30 Days Qty: 30 0RF metoprolol succinate 25 mg Tablet Extended Release 24 Hr 25 mg PO 1XD 30 Days Qty: 30 0RF carboxymethylcellulose sodium Drops 1 drp OPHTHALMIC (EYE) BID PRN (Reason: Dry Eyes) 30 Days Qty: 1 0RF apixaban 5 mg Tablet 5 mg PO BID 30 Days Qty: 60 0RF melatonin 3 mg Capsule 3 mg PO BEDTIME PRN (Reason: Back Pain) 30 Days Qty: 30 0RF Discontinued acetaminophen 500 mg Tablet 1,000 mg PO BID PRN (Reason: Headache) diclofenac sodium [Arthritis Pain (diclofenac)] 1 % Gel PRN (Reason: Back Pain) fluoxetine 40 mg Capsule 40 mg PO DAILY Discharge Orders: Discharge Order (Routine); Ordered 12/16/22 Ordered By: Noe Zamora Diet: Advance to usual diet Activity on Discharge: As tolerated Stand Alone Forms: Patient Portal Discharge page Care Plan Goals: Care plan goals achieved in this admission. Health Concerns: Continue treatment with Outpatient providers Plan of Treatment: Continue medication management as an outpatient. Assessment: Elderly male with a past history of dementia and mood disorder admitted for increased assaultiveness and agitation. He responded fairly well To a combination of Zyprexa and Depakote. Safe to be discharged to the community.
[2022-12-16 10:51] LABS: COVID-19 Test Negative (Negative); IDNOW Serial# 9DB6401D
--- NOTE | 2022-12-16 11:14 | PC.NURSE ---
Pt. alert and oriented X 3. Continues to have poor insight into situation. Is aware of discharge and willing to return to [place], but has reservations r/t he believes they keep too much of his money and he does not believe he needs a guardian. Pt. has been pleasant and cooperative and med compliant. Denies SI/HI/anxiety/depression. Mood euthymic. Nurse to nurse completed with Sharee at [facility]. Pt. is Covid negative.
== END 2022-12-16 11:10 | DRG 885 ==
PROVIDERS: Psychiatry & Neurology Psychiatry; Social Worker; Admitting Provider Psychiatry & Neurology Psychiatry; PCP Internal Medicine Nephrology; Visit Provider Psychiatry & Neurology Psychiatry
DX: F33.1 Major depressive disorder, recurrent, moderate (principal); I25.5 Ischemic cardiomyopathy; F03.90 Unspecified dementia, unspecified severity, without behavioral disturbance, psychotic disturbance, mood disturbance, and anxiety; I25.10 Atherosclerotic heart disease of native coronary artery without angina pectoris; I48.0 Paroxysmal atrial fibrillation; G89.29 Other chronic pain; M54.59 Other low back pain; Z95.2 Presence of prosthetic heart valve; Z20.822 Contact with and (suspected) exposure to COVID-19; F17.210 Nicotine dependence, cigarettes, uncomplicated; Z71.6 Tobacco abuse counseling; Z79.01 Long term (current) use of anticoagulants; Z79.02 Long term (current) use of antithrombotics/antiplatelets; Z79.899 Other long term (current) drug therapy
CPT/HCPCS: 36415; 80053; 80061; 82607; 82746; 83036; 84443; 87635; J2060